=== PATIENT | male | born 1955 | race Caucasian/White ===

== ENCOUNTER 2016-11-23 07:27 | Inpatient (IN) ==
[2016-11-23] MEDS ORDERED: Ipratropium/Albuterol Neb 3 ML IH ONE (07:53)
[2016-11-23] MEDS ORDERED: Azithromycin 500 MG in D5% in Water 250 ML IVPB ONE (07:53)
--- NOTE | 2016-11-23 07:58 | Emergency Department Note ---
Disposition Clinical Impression: Community acquired pneumonia, Acute exacerbation of chronic obstructive airways disease Acute exacerbation of CHF (congestive heart failure) Qualifiers: Congestive heart failure type: unspecified congestive heart failure type Qualified Code(s): I50.9 - Heart failure, unspecified Disposition: Admitted As Inpatient Condition: Fair Referrals: Sara Carcamo CNP [Primary Care Provider] - Forms: ED Satisfaction Letter Time of Disposition: 08:17 SOB HPI - General Chief Complaint: ED Shortness of Breath/Dyspnea Stated Complaint: LYLE, CHF Time Seen by Provider: 11/23/16 07:46 Source: patient Limitations: no limitations Nursing Notes Reviewed: Yes Vital Signs Reviewed: Yes - History of Present Illness Patient is a 60-year-old male who presents to [facility] ED with the chief complaint of recurrent pneumonia. He was already seen at [facility] and was diagnosed with CHF and right upper lobe recurrent pneumonia. He was treated with Rocephin, Solu-Medrol, IV metoprolol. His workup there did show an elevated troponin as well. A call was made to our hospital for direct admission. He was accepted already by Dr. Cantu the patient declined ambulance transfer over since he had a large bill from the previous hospitalization. Family drove him over to our emergency department. Patient just states he feels weak. No chest pain or difficulty breathing at this time. Onset (ago): week(s) Context: recent illness Severity: severe Consistency/Duration: gradually worsening Improves with: nothing Worsens with: nothing Known history of: COPD Associated symptoms: Reports: cough, wheezing. Denies: chest pain Cough present: Yes Cough Description: Involuntary Cough Frequency: Intermittent - Related Data Home oxygen amount: none Home Medications Medication Instructions Recorded Confirmed Aspirin [Ecotrin] 325 mg PO DAILY 10/25/16 11/23/16 Furosemide [Lasix] 40 mg PO BID 10/25/16 11/23/16 Lisinopril [Zestril] 10 mg PO DAILY 10/25/16 11/23/16 Previous Rx's Medication Instructions Recorded PredniSONE 40 mg PO DAILY #30 tablet 10/25/16 Allergies Allergy/AdvReac Type Severity Reaction Status Date / Time codeine Allergy See Verified 11/23/16 07:33 Comments All systems ED: reviewed and negative except as stated. Past Medical History - Past Medical History Attestation: Yes The following information was validated with the patient. Source: patient Medical history: Reports: cancer, CHF, COPD, diabetes, hypertension, other Psychiatric history: Reports: no psych history - Social History Smoking Status: Current every day smoker Smokeless Tobacco Status: No Alcohol use: Reports: occasionally Drug use: Reports: none Physical Exam - General Limitations: no limitations General appearance: alert, in no apparent distress - Head Head exam: atraumatic, normocephalic, normal inspection - Eye Eye exam: Present: normal appearance, PERRL, EOMI - ENT ENT exam: normal exam, normal oropharynx, mucous membranes moist - Neck Neck exam: Present: normal inspection, full ROM, trachea midline - Chest Chest inspection: Present: normal inspection, symmetric chest wall rise - Respiratory Respiratory exam: Present: wheezes (Diffuse bilateral) - Cardiovascular Cardiovascular exam: Present: normal rhythm, tachycardia - Abdominal Exam Abdominal exam: Present: soft, Non-Tender. Absent: tenderness, distention, guarding, rebound, rigidity - Extremities Exam Extremities exam: Present: normal inspection, full ROM. Absent: tenderness, pedal edema - Neurological Exam Neurological exam: Present: alert, oriented X3 - Psychiatric Psychiatric exam: Present: normal affect, normal mood - Skin Skin exam: Present: warm, dry, intact, normal color Course Course Narrative: Patient seen and examined. Patient had elevated troponin of 0.05, BNP in the 800s, chest x-ray that showed congestive heart failure. We will add on a repeat troponin. I spoke with hospitalist Dr. Corbin who has accepted patient for admission. He would like us to order a influenza swab as well as respiratory panel. Would also like a dose of Lasix and an aspirin. Vital Signs Temperature 98.5 F 11/23/16 07:33 Pulse Rate 115 11/23/16 07:33 Respiratory Rate 18 11/23/16 07:33 Blood Pressure 131/85 11/23/16 07:33 O2 Sat by Pulse Oximetry 97 11/23/16 07:33 Temperature 98.5 F 11/23/16 07:33 Pulse Rate 115 11/23/16 07:33 Respiratory Rate 18 11/23/16 07:33 Blood Pressure 131/85 11/23/16 07:33 O2 Sat by Pulse Oximetry 97 11/23/16 07:33 Oxygen Delivery Oxygen Delivery Room Air Shortness of Breath/Dyspnea - Medical Records Medical records reviewed: Yes I reviewed the patient's medical records. - Lab Data Lab results reviewed: Yes I reviewed the patient's lab results. - Radiology Data Radiology results reviewed: Yes I reviewed the patient's radiology results. - EKG Data EKG attestation: Yes I reviewed and interpreted this EKG. EKG results narrative: EKG done at 742 shows sinus tachycardia with a rate of [address] elevation. There is ST depression in V5 and V6. Large P waves indicating right atrial and left atrial enlargement. findings unchanged from prior EKG done 10/25/2016
--- NOTE | 2016-11-23 08:08 | Emergency Department Note ---
Disposition Clinical Impression: Community acquired pneumonia, Acute exacerbation of CHF (congestive heart failure), Acute exacerbation of chronic obstructive airways disease Disposition: Admitted As Inpatient Condition: Fair General Adult HPI - General Chief complaint: ED Shortness of Breath/Dyspnea Stated complaint: LYLE, CHF Time Seen by Provider: 11/23/16 07:46 Source: patient Limitations: no limitations Nursing Notes Reviewed: Yes Vital Signs Reviewed: Yes - History of Present Illness Pain Scale: 0 - Related Data Home Medications Medication Instructions Recorded Confirmed Aspirin [Ecotrin] 650 mg PO DAILY 10/25/16 11/23/16 Furosemide [Lasix] 40 mg PO BID 10/25/16 11/23/16 Lisinopril [Zestril] 10 mg PO DAILY 10/25/16 11/23/16 Spironolactone [Aldactone] 25 mg PO DAILY 11/23/16 11/23/16 Allergies Allergy/AdvReac Type Severity Reaction Status Date / Time codeine Allergy See Verified 11/23/16 07:33 Comments Past Medical History - Past Medical History Medical history: Reports: cancer, CHF, COPD, diabetes, hypertension, other Psychiatric history: Reports: no psych history - Social History Smoking Status: Current every day smoker Smokeless Tobacco Status: No Alcohol use: Reports: occasionally Drug use: Reports: none Physical Exam - General Limitations: no limitations General appearance: alert, in no apparent distress Course Vital Signs Temperature 98.5 F 11/23/16 07:33 Pulse Rate 115 11/23/16 07:33 Respiratory Rate 18 11/23/16 07:33 Blood Pressure 131/85 11/23/16 07:33 O2 Sat by Pulse Oximetry 97 11/23/16 07:33 Temperature 98.5 F 11/23/16 07:33 Pulse Rate 115 11/23/16 07:33 Respiratory Rate 18 11/23/16 08:25 Blood Pressure 131/85 11/23/16 07:33 O2 Sat by Pulse Oximetry 97 11/23/16 08:25 Oxygen Delivery Oxygen Delivery Room Air Medical Decision Making - MDM Narrative Medical decision making narrative: I examined this patient and my medical decision-making was reviewed with the DIRECTOR PERIOPERATIVE/PA/Advanced Practice Nurse/Resident Physician. I agree with the documented findings, disposition and treatment plan as described except to the extent set forth below. Patient was seen at an outlying ER yesterday they wanted to transfer him for admission. And he did not want to do that due to the fact that he was concerned that he would have to pay for the ambulance. He drove himself to the emergency department. They left his IV in. He did get a a dose of IV antibiotics there. Consisting of Rocephin solely. He does have a pneumonia on his chest x-ray as well as CHF. He has not had any chest pain this time he does have some wheezing. We are paging hospitalists to see if they will go ahead and admit him. Were not repeated his troponin and start his azithromycin, and give him a breathing treatment here. Patient's agreement with this plan. The hospitalists is paged. 0863 hours: Patient's troponin is back in 0.04. No chest pain here. He did get his azithromycin started, breathing treatment here. Hospitalist is excepted him to service. Impression is acute exacerbation of CHF and pneumonia. Elevated troponin and rule out ACS. - Lab Data Lab Results 11/23/16 Range/Units 08:07 Troponin I 0.04 H* (0-0.03) ng/mL
[2016-11-23] MEDS ORDERED: Aspirin 81 MG TAB.CHEW PO STA (08:09)
[2016-11-23] MEDS ORDERED: Furosemide 40 MG/4 ML VIAL IVP ONE (08:12)
[2016-11-23 10:43] LABS: Adenovirus Not Detected (Not Detect); Bordetella Pertussis Not Detected (Not Detect); Chlamydophila pneumoniae Not Detected (Not Detect); Coronavirus 229E Not Detected (Not Detect); Coronavirus HKU1 Not Detected (Not Detect); Coronavirus NL63 Not Detected (Not Detect); Coronavirus OC43 Not Detected (Not Detect); Human Metapneumovirus Not Detected (Not Detect); Human Rhinovirus/Enterovirus Not Detected (Not Detect); Influenza A Subtype 2009 H1 Not Detected (Not Detect); Influenza A Untypeable Not Detected (Not Detect); Influenza B Not Detected (Not Detect); Mycoplasma pneumoniae Not Detected (Not Detect); Parainfluenza Virus 1 Not Detected (Not Detect); Parainfluenza Virus 2 Not Detected (Not Detect); Parainfluenza Virus 3 Not Detected (Not Detect); Parainfluenza Virus 4 Not Detected (Not Detect); Respiratory Syncytial Virus Not Detected (Not Detect)
--- NOTE | 2016-11-23 11:58 | Internal Med History&Physical ---
Date of Encounter: 11/23/16 Time of Encounter: 11:54 Assessment and Plan (1) Tobacco abuse disorder Current visit: Yes Status: Acute I advised smoking cessation and provided counseling. Will offer nicotine replacement therapy. (2) Coronary artery disease Current visit: Yes Status: Acute Continue with aspirin. Check lipid panel. Monitor on telemetry. Trend troponin. Obtain echocardiogram. Qualifiers: Coronary Disease-Associated Artery/Lesion type: [place] artery [place] vs. transplanted heart: tribal heart Associated angina: without angina Qualified Code(s): I25.10 - Atherosclerotic heart disease of tribal coronary artery without angina pectoris (3) Acute exacerbation of CHF (congestive heart failure) Current visit: Yes Status: Acute Monitor on telemetry. Obtain echocardiogram to assess for ejection fraction. Trend troponin. We will treat with IV Lasix. Continue lisinopril and spironolactone. Daily weights and strict input and output monitoring. Qualifiers: Congestive heart failure type: unspecified congestive heart failure type Qualified Code(s): I50.9 - Heart failure, unspecified (4) Acute exacerbation of chronic obstructive airways disease Current visit: Yes Status: Acute Patient does not have a establish diagnosis of COPD however he has a lifelong history of smoking and he is wheezing profusely. He does not report a history of asthma. I will start IV steroids, start treatment with albuterol and Atrovent. I recommend outpatient follow-up with pulmonary for PFTs once the pneumonia clears. Continue oxygen by nasal cannula to maintain oxygen saturation above 92%. (5) Community acquired pneumonia Current visit: Yes Status: Acute Ceftriaxone and azithromycin for treatment of community-acquired pneumonia. Check sputum culture. Check Legionella and streptococcal antigens. Follow-up blood cultures. (6) Right upper lobe pneumonia Current visit: No Status: Acute Qualifiers: Pneumonia type: due to unspecified organism Qualified Code(s): J18.1 - Lobar pneumonia, unspecified organism (7) DVT prophylaxis Current visit: Yes Status: Acute Encourage early ambulation. He does not require chemical prophylaxis due to fully ambulatory state. Internal Medicine - H&P: HPI Chief complaint: Recurrent pneumonia Admitted From: Emergency Dept Plans for Post Hospital Care: Home History of present illness: Mr. Jackson is a 60 year old male with past medical history significant for CAD status post [place], congestive heart failure and hypertension who presented to the hospital for recurrent pneumonia. He says that he has been finding of pneumonia over the last 6 weeks since the middle of September he has had 4 courses of antibiotics and his symptoms improve with antibiotics however they recur once he stopped the antibiotics. He describes his symptoms as shortness of breath and right-sided upper chest pain which is moderate and dull, associated with cough productive of white phlegm sometimes with blood streaks. He also reports associated wheezing. He initially presented to [facility] where he was given ceftriaxone and azithromycin and referred for transfer to our facility. He signed out AMA and had his family drive him to our emergency department. Currently he denies shortness of breath at rest chest pain, here he reports continued cough. Review of systems: Patient reports feeling depressed, reports easy skin skin bruising, no rashes or wounds. Apart from what is mentioned in the history of present illness a 10 point review of systems was negative. Family history pertinent for the patient and his mother suffered with breast cancer, negative for premature coronary artery disease. Past Med Surg Social Fam HX - Past Medical History Medical history: cancer, CHF, COPD, diabetes, hypertension, other Psychiatric history: no psych history - Social History Smoking Status: Current every day smoker Smokeless Tobacco Status: No Alcohol use: occasionally Drug use: none Internal Medicine - H&P: Meds Aspirin [Ecotrin] 650 mg PO DAILY 10/25/16 [History] Furosemide [Lasix] 40 mg PO BID 10/25/16 [History] Lisinopril [Zestril] 10 mg PO DAILY 10/25/16 [History] Spironolactone [Aldactone] 25 mg PO DAILY 11/23/16 [History] Allergies codeine Allergy (Verified 11/23/16 07:33) See Comments Nausea, vomiting All Systems PM: A 10-system review of systems was performed and is negative for pertinent findings except as documented above in the HPI. - Constitutional Vitals: Temp Pulse Resp BP Pulse Ox 97.9 F 107 16 112/77 94 L 11/23/16 10:31 11/23/16 10:31 11/23/16 10:31 11/23/16 10:31 11/23/16 10:31 General appearance: Present: A&O X 3 - Eye Eye exam: Present: PERRL, conjuntiva pink, sclera anicteric Pupils: Present: PERRL - Neck Neck exam general surgery: Present: supple, trachea midline. Absent: lymphadenopathy - Respiratory Respiratory exam: Present: CTAB, wheezes. Absent: accessory muscle use, rales, rhonchi Additional comments: Bilateral expiratory wheezes and prolonged expiratory phase which did not clear with cough. - Cardiovascular Cardiovascular exam: Present: RRR, +S1, +S2. Absent: diastolic murmur, gallop, rubs, systolic murmur - GI/Abdominal GI/Abdominal exam: Present: normal bowel sounds, soft, no peritoneal signs. Absent: distended, tenderness - Extremities Exam Extremities exam: Present: warm, radial pulses palpable and symetrical. Absent : calf tenderness, cyanotic, pedal edema - Neurological Exam Neurological exam: Present: CN II-XII intact, oriented X3, no focal deficits. Absent: pronater drift, facial droop, speech deficit - Skin Skin exam: Present: dry, intact Internal Med - H&P Results - Labs Labs: Laboratory data from [facility] medical record drawn yesterday 11/22/2016: 20 blood cell count 12.8 hemoglobin 16.5 sodium 1:30 potassium 3.9B 110 creatinine 0.8 glucose 94. Troponin 0.05 BNP 893. - EKG Data Rate: tachycardia (Sinus tach [address] and T wave changes.) - Impressions Chest x-ray from [facility] yesterday shows enlarged heart. Hilar opacities and increased right upper lobe opacity concerning for pulmonary edema or pneumonia.
[2016-11-23] MEDS ORDERED: Acetaminophen 325 MG TABLET PO PRN (12:11)
[2016-11-23] MEDS ORDERED: Mag Hydrox/Al Hydrox/Simeth 30 ML UDC PO PRN (12:11)
[2016-11-23] MEDS ORDERED: Azithromycin 250 MG TABLET PO SCH (12:15)
[2016-11-23] MEDS: Aspirin Enteric Coated 325 MG Tablet PO SCH (12:45)
[2016-11-23] MEDS: Ipratropium/Albuterol Neb 3 ML IH SCH ×2 (15:39→19:53)
[2016-11-23] MEDS: Furosemide 40 MG/4 ML VIAL IVP SCH (17:48)
[2016-11-23] MEDS: methylPREDNISolone 125 MG/2 ML VIAL IVP SCH (17:48)
[2016-11-23] MEDS: Nicotine 14 MG PATCH.TD24 TD SCH (17:48)
[2016-11-24] MEDS: Ipratropium/Albuterol Neb 3 ML IH SCH ×7 (00:02→23:05)
[2016-11-24] MEDS: methylPREDNISolone 125 MG/2 ML VIAL IVP SCH ×3 (00:28→20:11)
[2016-11-24 04:19] LABS: Basophils % 0.1 %; Hematocrit 48.6 % (37.5-50.1); Hemoglobin 16.4 g/dL (12.9-16.9); Immature Granulocytes % 0.6 % (0-4); Lymphocytes # 0.4 K/mcL (0.6-4.6); Lymphocytes % 3.2 %; Mean Corpuscular HGB Conc 33.7 g/dL (31.6-35.5); Mean Corpuscular Hemoglobin 31.6 pg (28.0-33.3); Mean Corpuscular Volume 93.6 fL (83.0-100.0); Mean Platelet Volume 10.4 fL (9.4-12.4); Monocytes # 0.3 K/mcL (0.0-1.3); Monocytes % 2.7 %; Neutrophils # 11.1 K/mcL (1.6-8.9); Platelet Count 267 K/mcL (140-400); Red Blood Count 5.19 M/mcL (4.19-5.50); Red Cell Distribution Width 14.1 % (11.5-14.5); Segmented Neutrophils % 93.4 %
[2016-11-24 04:37] LABS: BUN/Creatinine Ratio 24 (6-26); Blood Urea Nitrogen 20 mg/dL (8-26); Calcium 8.9 mg/dL (8.6-10.8); Carbon Dioxide 26 mEq/L (19-29); Chloride 97 mEq/L (98-109); Cholesterol 194 mg/dL (< 200); Glucose 139 mg/dL (70-99); HDL Cholesterol 49 mg/dL (40-59); LDL Cholesterol,Calculated 126 mg/dL (0-99); Magnesium 1.8 mg/dL (1.6-2.6); Osmolality,Calculated 283 (280-300); Potassium 3.5 mEq/L (3.5-4.5); Sodium 134 mEq/L (136-145); Triglycerides 95 mg/dL (< 150); eGFR For African Americans > 60 (> 60); eGFR For Non-African Americans > 60 (> 60)
[2016-11-24] MEDS: Nicotine 14 MG PATCH.TD24 TD SCH ×2 (09:08→22:32)
[2016-11-24] MEDS: Aspirin Enteric Coated 325 MG Tablet PO SCH (09:09)
[2016-11-24] MEDS: Spironolactone 25 MG TABLET PO SCH (09:09)
[2016-11-24] MEDS: Furosemide 40 MG/4 ML VIAL IVP SCH ×2 (09:09→17:13)
--- NOTE | 2016-11-24 10:01 | ECHO - Doppler Report ---
Echocardiogram Name: Reece Jackson Date of Study: 11/23/2016 Date: 1955 Ht: 74.0 in Medical Record#: [id number] Age: 60 Wt: 209.0 lb Gender: Male BSA: 2.21 Order #: [id number] Location: [facility] Room #: 3B39 Reading Physician: Reece Persaud MD, [facility] Logistics Management Specialist: Soraida Weller Ordering Physician: Yogi Corbin MD Primary Physician: Sara Carcamo CNP Indications: Congestive heart failure Impressions: Severely dilated left ventricle. Severe LV systolic dysfunction, LVEF 20%. There is global LV hypokinesis. Normal right ventricular size and function. A device lead was visualized in the right atrium and right ventricle. Mild mitral regurgitation. Unable to estimate RVSP due to lack of TR jet. Left Ventricular Wall Motion: Rest Echo Findings The apex, apical inferior, mid inferior, basal inferior, apical anterior, mid anterior, basal anterior, apical septal, mid inferior septal, basal inferior septal, apical lateral, mid anterior lateral, basal anterior lateral, mid anterior septal, mid inferior lateral, basal anterior septal and basal inferior lateral long were hypokinetic. Findings: Study Quality * Suboptimal echo windows. ECG Findings * Sinus tachycardia. Left Ventricle * Severely dilated left ventricle. * Severe LV systolic dysfunction, LVEF 20%. There is global LV hypokinesis. * Normal LV wall thickness. Right Ventricle * Normal right ventricular size and function. Device lead * A device lead was visualized in the right atrium and right ventricle. Left Atrium * Normal left atrial size. Right Atrium * Normal right atrial size. Aorta * Aortic root was not well visualized. Appears normal in size. Pericardium * There is no pericardial effusion present. IVC * Normal IVC dimensions and inspiratory collapse. Aortic Valve * Aortic valve not well visualized. * Normal aortic valve function. Mitral Valve * Mildly calcified mitral valve leaflets. * No mitral stenosis. * Mild mitral regurgitation. Tricuspid Valve * Tricuspid valve not well visualized. * Normal tricuspid valve function. * Unable to estimate RVSP due to lack of TR jet. Pulmonic Valve * Pulmonic valve not well visualized. * Normal pulmonic valve function. History Hypertension History of Smoking Years 50 Packs 0.5 Myocardial Infarction Congestive Heart Failure Pacer/ICD Implant 09/17/2013 a Previous Echo was performed. Measurements: BP: 121/ 83 2D Normal Values RVIDd: 3.10 cm IVSd: 1.00 cm 0.6 - 1.0 cm LVIDd: 7.20 cm 3.7 - 5.6 cm LVPWd: 1.00 cm 0.6 - 1.1 cm LVIDs: 6.50 cm 1.5 - 3.6 cm AO: 3.20 cm < 4.0 cm %FS: 9.72 cm >25 % LA volume: 63 Updated by Reece Persaud MD, [facility] on 11/24/2016 9:56:52 AM electronically signed on 11/24/2016 9:57:20 AM with status of Final Wall Motion [place]: 1=Normal, 2=Hypokinesis, 3=Akinesis, 4=Dyskinesis, 5=Aneurysmal, 6=Hyperkinetic, X=Not Visualized (Blank)=Missing
[2016-11-24] MEDS: Azithromycin 250 MG TABLET PO SCH (12:48)
--- NOTE | 2016-11-24 14:16 | Internal Med Progress Note ---
Date of Encounter: 11/24/16 Time of Encounter: 14:14 - Assessment and plan (1) Community acquired pneumonia Current Visit: Yes Status: Acute Assessment and plan: Chest x-ray shows right upper lobe infiltrates. Failed outpatient oral antibiotic therapy. Currently improving, continue IV Rocephin and azithromycin. Follow blood cultures. Urine Legionella and strep pneumonia antigen negative. Sample for sputum culture is inadequate. Improving leukocytosis. Continue supplemental oxygen as needed and supportive care. (2) Acute exacerbation of CHF (congestive heart failure) Current Visit: Yes Status: Acute Assessment and plan: Patient has known history of dilated cardiomyopathy. Echocardiogram shows severely dilated left ventricle, ejection fraction of 20%, mild mitral regurgitation. Continue IV Lasix, noted to have net negative balance of 2.4 L since admission. Continue fluid restriction, urine not monitoring and daily weights. Start metoprolol given his tachycardia, although patient reports that he always has some tachycardia at baseline. Supplemental oxygen as needed. Qualifiers: Congestive heart failure type: systolic Qualified Code(s): I50.23 - Acute on chronic systolic (congestive) heart failure (3) Acute exacerbation of chronic obstructive airways disease Current Visit: Yes Status: Acute Assessment and plan: Improving. Continue bronchodilators, taper down IV steroids as tolerated. Supplemental oxygen when necessary. Patient may need home oxygen evaluation at the time of discharge. Recommend outpatient PFTs given his chronic and significant smoking history. Physical and occupational therapy evaluation as he tends to live alone and severely symptomatic due to his cardiopulmonary issues. (4) Essential hypertension Current Visit: Yes Status: Chronic (5) Diabetes mellitus Current Visit: Yes Status: Chronic Assessment and plan: Continue Accu-Chek blood glucose monitoring with sliding scale insulin as needed. Diabetic diet. Qualifiers: Diabetes mellitus type: type 2 Diabetes mellitus complication status: with unspecified complications Diabetes mellitus retirement insulin use: without retirement use Qualified Code(s): E11.8 - Type 2 diabetes mellitus with unspecified complications (6) Coronary artery disease Current Visit: Yes Status: Acute Assessment and plan: Continue aspirin, beta jose alejandro and statin. Qualifiers: Coronary Disease-Associated Artery/Lesion type: [place] artery [place] vs. transplanted heart: [place] heart Associated angina: without angina Qualified Code(s): I25.10 - Atherosclerotic heart disease of [place] coronary artery without angina pectoris (7) Tobacco abuse disorder Current Visit: Yes Status: Chronic Assessment and plan: Patient reports having tried multiple times to quit smoking, unsuccessful. Continue nicotine transdermal patch at this time and patient also requests prescriptions for this at the time of discharge. - Subjective Interval history: Feels much better; improving cough and shortness of breath; no chest pain, palpitations, nausea, leg swelling; - Constitutional Vitals: Temp Pulse Resp BP Pulse Ox 98.1 F 110 17 109/68 91 L 11/24/16 10:52 11/24/16 10:52 11/24/16 10:52 11/24/16 10:52 11/24/16 10:52 General appearance: Present: A&O X 3 - Respiratory Respiratory exam: Present: rales (bibasal crackles+), wheezes (B/L diffuse end- expiratory wheezing). Absent: accessory muscle use, rhonchi - Cardiovascular Cardiovascular exam: Present: RRR, +S1, +S2, tachycardia. Absent: diastolic murmur, gallop, rubs, systolic murmur - GI/Abdominal GI/Abdominal exam: Present: normal bowel sounds, soft, no peritoneal signs. Absent: distended, tenderness - Extremities Exam Extremities exam: Present: full ROM, warm, radial pulses palpable and symetrical. Absent: calf tenderness, cyanotic, pedal edema - Neurological Exam Neurological exam: Present: CN II-XII intact, oriented X3, no focal deficits. Absent: pronater drift, facial droop, speech deficit Internal Medicine: Result - Labs CBC & Chem 7: 11/24/16 03:32 11/24/16 03:32 Labs: Short CBC 11/24/16 Range/Units 03:32 WBC 11.9 H (4.3-11.1) K/mcL Hgb 16.4 (12.9-16.9) g/dL Hct 48.6 (37.5-50.1) % Plt Count 267 (140-400) K/mcL Neutrophils # 11.1 H (1.6-8.9) K/mcL BMP 11/24/16 03:32 Sodium 134 L Potassium 3.5 Chloride 97 L Carbon Dioxide 26 BUN 20 D Creatinine 0.84 Glucose 139 H Calcium 8.9 Cardiac Enzymes 11/23/16 Range/Units 17:41 Troponin I 0.03 (0-0.03) ng/mL Consult Discharge Plan - Plan Referrals: Sara Carcamo, [employer] [Primary Care Provider] -
--- NOTE | 2016-11-24 16:03 | Electrocardiograph Report ---
[address] [address] Test Date: 2016-11-23 Pat Name: Reece Jackson Department: 104 Room: 3B39 Gender: M Dining Room Manager: : 1955 Requested By: Claudia Martinez Order Number: [id number] Reading MD: Parvez Alcala Measurements Intervals [place] Rate: 110 P: 64 NC: 227 QRS: -21 QRSD: 105 T: 72 QT: 409 QTc: 474 Interpretive Statements SINUS TACHYCARDIA WITH FIRST DEGREE AV BLOCK RIGHT ATRIAL ENLARGEMENT LEFT ATRIAL ENLARGEMENT BORDERLINE LEFT AXIS DEVIATION MODERATE T-WAVE ABNORMALITY, CONSIDER LATERAL ISCHEMIA Electronically Signed On 11-24-2016 16:01:31 EDT by Parvez Alcala
[2016-11-25] MEDS: Ipratropium/Albuterol Neb 3 ML IH SCH ×5 (03:52→20:46)
[2016-11-25] MEDS: methylPREDNISolone 125 MG/2 ML VIAL IVP SCH (08:55)
[2016-11-25] MEDS: Furosemide 40 MG/4 ML VIAL IVP SCH ×2 (08:56→15:30)
[2016-11-25] MEDS: Aspirin Enteric Coated 325 MG Tablet PO SCH (08:56)
[2016-11-25] MEDS: Nicotine 14 MG PATCH.TD24 TD SCH (08:56)
[2016-11-25] MEDS: Spironolactone 25 MG TABLET PO SCH (08:57)
[2016-11-25] MEDS: Azithromycin 250 MG TABLET PO SCH (12:17)
--- NOTE | 2016-11-25 14:47 | Internal Med Progress Note ---
Date of Encounter: 11/25/16 Time of Encounter: 14:47 - Assessment and plan (1) Community acquired pneumonia Current Visit: Yes Status: Acute Assessment and plan: Chest x-ray shows right upper lobe infiltrates. Failed outpatient oral antibiotic therapy. Currently improving, continue IV Rocephin and azithromycin. Follow blood cultures. Urine Legionella and strep pneumonia antigen negative. Sample for sputum culture is inadequate. Continue supplemental oxygen as needed and supportive care. (2) Acute exacerbation of CHF (congestive heart failure) Current Visit: Yes Status: Acute Assessment and plan: Patient has known history of dilated cardiomyopathy. Echocardiogram shows severely dilated left ventricle, ejection fraction of 20%, mild mitral regurgitation. Patient has ICD in place. Continue IV Lasix, noted to have net negative balance of 4.5 L since admission. Continue fluid restriction, urine output monitoring and daily weights. Continue beta jose alejandro and KORI inhibitor. Patient continues to be symptomatic, will consult cardiology. Supplemental oxygen as needed, may need home oxygen evaluation at discharge. Qualifiers: Congestive heart failure type: systolic Qualified Code(s): I50.23 - Acute on chronic systolic (congestive) heart failure (3) Acute exacerbation of chronic obstructive airways disease Current Visit: Yes Status: Acute Assessment and plan: Improving. Continue bronchodilators, taper down IV steroids as tolerated. Supplemental oxygen when necessary. Patient may need home oxygen evaluation at the time of discharge. Recommend outpatient PFTs given his chronic and significant smoking history. Physical and occupational therapy evaluation noted, deemed to have no therapy needs. Patient would still benefit from home health services given his severe cardiopulmonary symptoms. (4) Essential hypertension Current Visit: Yes Status: Chronic (5) Diabetes mellitus Current Visit: Yes Status: Chronic Assessment and plan: Continue Accu-Chek blood glucose monitoring with sliding scale insulin as needed. Diabetic diet. Qualifiers: Diabetes mellitus type: type 2 Diabetes mellitus complication status: with unspecified complications Diabetes mellitus local intermodal truck driver insulin use: without local intermodal truck driver use Qualified Code(s): E11.8 - Type 2 diabetes mellitus with unspecified complications (6) Coronary artery disease Current Visit: Yes Status: Acute Assessment and plan: Continue aspirin, beta jose alejandro and statin. Qualifiers: Coronary Disease-Associated Artery/Lesion type: [place] artery [place] vs. transplanted heart: [place] heart Associated angina: without angina Qualified Code(s): I25.10 - Atherosclerotic heart disease of [place] coronary artery without angina pectoris (7) Tobacco abuse disorder Current Visit: Yes Status: Chronic Assessment and plan: Patient reports having tried multiple times to quit smoking, unsuccessful. Continue nicotine transdermal patch at this time and patient also requests prescriptions for this at the time of discharge. - Subjective Interval history: Feels about the same; c/o- exertional dyspnea and orthopnea and fatigue; no chest pain or palpitations; - Constitutional Vitals: Temp Pulse Resp BP Pulse Ox 97.6 F 107 18 119/74 99 11/25/16 10:59 11/25/16 10:59 11/25/16 11:24 11/25/16 10:59 11/25/16 11:24 General appearance: Present: A&O X 3 - Respiratory Respiratory exam: Present: rales, wheezes (B/L end-expiratory wheezing). Absent : accessory muscle use, rhonchi - Cardiovascular Cardiovascular exam: Present: RRR, +S1, +S2. Absent: diastolic murmur, gallop, rubs, systolic murmur - GI/Abdominal GI/Abdominal exam: Present: normal bowel sounds, soft, no peritoneal signs. Absent: distended, tenderness - Extremities Exam Extremities exam: Present: full ROM, warm, radial pulses palpable and symetrical. Absent: calf tenderness, cyanotic, pedal edema Internal Medicine: Result - Labs CBC & Chem 7: 11/24/16 03:32 11/24/16 03:32 Consult Discharge Plan - Plan Referrals: Sara Carcamo CNP [Primary Care Provider] - 12/01/16 2:20 pm
[2016-11-26] MEDS: Ipratropium/Albuterol Neb 3 ML IH SCH ×5 (00:35→15:55)
[2016-11-26 06:05] LABS: BUN/Creatinine Ratio 36 (6-26); Blood Urea Nitrogen 31 mg/dL (8-26); Calcium 8.6 mg/dL (8.6-10.8); Carbon Dioxide 31 mEq/L (19-29); Chloride 98 mEq/L (98-109); Glucose 78 mg/dL (70-99); Osmolality,Calculated 291 (280-300); Potassium 3.9 mEq/L (3.5-4.5); Sodium 138 mEq/L (136-145); eGFR For African Americans > 60 (> 60); eGFR For Non-African Americans > 60 (> 60)
--- NOTE | 2016-11-26 08:16 | Cardiology Consult Note ---
Date of Encounter: 11/26/16 Time of Encounter: 08:15 Assessment and Plan (1) Acute exacerbation of chronic obstructive airways disease Current Visit: Yes Status: Acute Per Cardiology: History of nicotine abuse of at least 2 packs per day for the past 40 years. According to past medical records history of COPD. Not follow with pulmonology. Patient was scattered expiratory wheezes throughout requiring nasal cannula 5 L O2-- previously on home oxygen. Recommend pulmonology consult for further management recommendations. (2) Community acquired pneumonia Current Visit: Yes Status: Acute Per Cardiology: Management per primary service. On Ceftriaxone and azithromycin for treatment of community-acquired pneumonia. (3) Acute exacerbation of CHF (congestive heart failure) Current Visit: Yes Status: Acute Per Cardiology: BNP upon admission in the 800s. Previous weight from last office visit 218 pounds. Patient reports baseline weight 210 pounds. Current weight 204.6 pounds. On IV Lasix 40 mg twice a day. He reports home dose of Lasix 20 mg by mouth twice a day. According to records patient net -5323ml. Euvolemic on exam. Do not suspect ongoing SOB and wheezing mainly attributed to heart failure. Will switch to Lasix 40 mg by mouth twice a day. Has ICD and denies any ICD shocks, however has been lost to follow-up. We'll perform ICD interrogation. Current EF 20% on echo with mild MR. Previous echo from 2013 showed EF 10-15%. We'll convert Lopressor back to Coreg. On KORI inhibitor and Aldactone. Qualifiers: Congestive heart failure type: systolic Qualified Code(s): I50.23 - Acute on chronic systolic (congestive) heart failure (4) Coronary artery disease Current Visit: Yes Status: Chronic Per Cardiology: Past history of CAD with last catheterization October 2013 which showed left main 15% distal, mid LAD 40%, distal LAD 40%, diagonal 1:30 percent, midcircumflex 30%, OM1 20%, mid ramus 40%, mid RCA 30%-- nonobstructive CAD. Denies any chest pain. Troponin initially 0.04 and then negative 2. Do not suspect non-STEMI, suspect demand ischemia in the setting of pneumonia and COPD exacerbation. No cardiac rehabilitation warranted. We'll decrease aspirin to 81 mg by mouth daily and add statin. Qualifiers: Coronary Disease-Associated Artery/Lesion type: [place] artery [place] vs. transplanted heart: [place] heart Associated angina: without angina Qualified Code(s): I25.10 - Atherosclerotic heart disease of [place] coronary artery without angina pectoris (5) Tobacco abuse disorder Current Visit: Yes Status: Chronic Per Cardiology: History smoking at least 2 packs per day for the past 40 years. Patient reports he "quit smoking 5 days ago ". Currently on nicotine patch. Smoking cessation reinforced. Discussion w patient/family: The assessment and plan as outlined above was discussed with the patient who expressed understanding and agreement. All questions were answered. Thank you for involving us in the care of your patient. Please call with any questions. Patient discussed and reviewed with Dr. Parvez Alcala. History of Present Illness Consult date: 11/26/16 Requesting physician: Mary Martinez Consult reason: CHF Chief complaint: SOB History of present illness: Mr. Jackson is a 60 year old male with a relevant past medical history of cardiomyopathy, ICD, CAD, nicotine abuse, hypertension, COPD, diabetes mellitus type 2. Patient last seen by cardiology [place] [address] Beth. Patient reports he was admitted due to worsening short of breath at rest and with exertion. Reports he's been battling pneumonia off on on now for the past few months. He denied any fever, chills, nausea, vomiting, diarrhea. He denied any edema. He reports baseline weight about 210 pounds and denies any significant weight gain. He denies any recent ICD shocks, however reports has not been interrogated in quite some time and he does not believe his home interrogation is working properly. He denies any chest pain. 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 Past Med Surg Social Fam HX - Past Medical History Attestation: Yes The following information was validated with the patient. Source: patient, old records reviewed Medical history: cancer, cardiomyopathy, CHF, COPD, coronary artery disease, diabetes, hypertension, other Psychiatric history: no psych history - Past Surgical History Surgical History: pacemaker/AICD - Social History Smoking Status: Current every day smoker Smokeless Tobacco Status: No Alcohol use: occasionally Drug use: none Medications and Allergies Aspirin [Ecotrin] 650 mg PO DAILY 10/25/16 [History] Furosemide [Lasix] 40 mg PO BID 10/25/16 [History] Lisinopril [Zestril] 10 mg PO DAILY 10/25/16 [History] Spironolactone [Aldactone] 25 mg PO DAILY 11/23/16 [History] Allergies codeine Allergy (Verified 11/23/16 07:33) See Comments Nausea, vomiting All Systems Review: A 10-system review of systems was performed and is negative for pertinent findings except as documented above in the HPI. - Cardiovascular Cardiovascular: as per HPI, dyspnea at rest, dyspnea on exertion - Respiratory Respiratory: wheezing Physical Examination Vital Signs, Last 4 Hours Temp Pulse Resp BP Pulse Ox 11/26/16 07:23 97.6 F 107 17 113/77 97 General: Conversant HEENT: Atraumatic, Normocephaly Neck: No JVD, Normal carotid pulses Cardiac: Reg Rate and Rhythm, Normal S1 and S2, No Murmur Lungs: Other (Scattered expiratory wheezes throughout) Neuro: Alert and responsive Abdomen: Soft, Non-Tender Skin: No rashes noted on visualized skin Musculoskeletal: No Chest Wall Tenderness Extremities: No Edema, Normal Pulses Results 11/24/16 03:32 11/26/16 04:52 Lab Results Laboratory Tests 10/25/16 11/23/16 11/23/16 10:00 00:15 08:07 WBC Magnesium AST 21 ALT 18 Troponin I 0.04 H* B-Natriuretic Peptide 893 H Albumin 3.0 L 11/23/16 11/23/16 11/24/16 12:29 17:41 03:32 WBC 11.9 H Magnesium AST ALT Troponin I 0.03 0.03 B-Natriuretic Peptide Albumin 11/24/16 03:32 WBC Magnesium 1.8 AST ALT Troponin I B-Natriuretic Peptide Albumin Intake & Output 11/23/16 11/24/16 11/25/16 11/26/16 23:59 23:59 23:59 23:59 Intake Total 590 / 590 1790 / 1790 1277 / 1277 220 / 220 Output Total 1475 / 1475 3725 / 3725 4000 / 4000 Balance -885 / -885 -1935 / -1935 -3 / -2723 220 / 220 Weight 94.829 kg 92.986 kg 93.213 kg Active Medications Acetaminophen (Tylenol) 650 mg PO Q6HR PRN PRN Reason: Mild Pain (1-3) Stop: 09/12/17 12:12 Al Hydrox/Mg Hydrox/Simethicone (Maalox) 15 ml PO Q6HR PRN PRN Reason: Dyspepsia Stop: 05/25/17 12:12 Albuterol/Ipratropium (Duoneb) 3 ml IH [id number] ANTOINETTE PRN Reason: Protocol Stop: 05/25/17 16:01 Last Admin: 11/26/16 07:54 Dose: 3 ml Aspirin (Aspirin Ec) 650 mg PO DAILY ANTOINETTE Stop: 05/25/17 12:16 Last Admin: 11/25/16 08:56 Dose: 650 mg Azithromycin (Zithromax) 500 mg PO Q24H ANTOINETTE Stop: 05/26/17 12:46 Last Admin: 11/25/16 12:17 Dose: 500 mg Docusate Sodium (Colace) 100 mg PO BID PRN; Protocol PRN Reason: Constipation Stop: 05/26/17 22:17 Last Admin: 11/25/16 06:01 Dose: 100 mg Furosemide (Lasix) 40 mg IVP BIDDIURETIC ANTOINETTE Stop: 05/25/17 17:01 Last Admin: 11/25/16 15:30 Dose: 40 mg Ceftriaxone Sodium 1,000 mg/ (Dextrose) 100 mls @ 200 mls/hr IVPB Q12HR ANTOINETTE Stop: 05/25/17 18:01 Last Infusion: 11/26/16 06:28 Dose: Infused Lisinopril (Zestril) 10 mg PO DAILY ANTOINETTE PRN Reason: Protocol Stop: 05/26/17 09:01 Last Admin: 11/25/16 08:56 Dose: 10 mg Methylprednisolone (Solu-Medrol) 60 mg IVP DAILY [facility] Stop: 05/28/17 09:01 Metoprolol Tartrate (Lopressor) 25 mg PO BID ANTOINETTE Stop: 05/26/17 14:16 Last Admin: 11/25/16 20:49 Dose: 25 mg Nicotine (Nicoderm) 14 mg TD DAILY ANTOINETTE PRN Reason: Protocol Stop: 05/25/17 17:31 Last Admin: 11/25/16 08:56 Dose: 14 mg Spironolactone (Aldactone) 25 mg PO DAILY ANTOINETTE Stop: 05/26/17 09:01 Last Admin: 11/25/16 08:57 Dose: 25 mg - Imaging and Cardiology Chest Xray: report reviewed Echo: report reviewed Cardiac cath: report reviewed - EKG Interpretation EKG results cardiology: personally reviewed (Sinus tachycardia in the 100s with first-degree AV block), no diagnostic ischemia, other (24 hr tele reviewed with avg HR = 109, SR-ST, 1 5 beat run NSVT) Consult Discharge Plan - Plan Referrals: Sara Carcamo CNP [Primary Care Provider] - 12/01/16 2:20 pm
[2016-11-26] MEDS ORDERED: methylPREDNISolone 125 MG/2 ML VIAL IVP SCH (09:00)
[2016-11-26] MEDS: Nicotine 14 MG PATCH.TD24 TD SCH (09:26)
[2016-11-26] MEDS: Spironolactone 25 MG TABLET PO SCH (09:27)
[2016-11-26] MEDS: Aspirin Enteric Coated 325 MG Tablet PO SCH (09:27)
[2016-11-26 11:15] VITALS: BP 127/80
[2016-11-26] MEDS: Azithromycin 250 MG TABLET PO SCH (13:18)
--- NOTE | 2016-11-26 15:12 | Discharge Summary ---
Date of Encounter: 11/26/16 Time of Encounter: 15:09 - Discharge Diagnosis (1) Community acquired pneumonia Priority: Primary Status: Acute (2) Acute exacerbation of CHF (congestive heart failure) Priority: Primary Status: Acute Qualifiers: Congestive heart failure type: systolic Qualified Code(s): I50.23 - Acute on chronic systolic (congestive) heart failure (3) Acute exacerbation of chronic obstructive airways disease Priority: Primary Status: Acute (4) Essential hypertension Priority: Secondary Status: Chronic (5) Diabetes mellitus Priority: Secondary Status: Chronic Qualifiers: Diabetes mellitus type: type 2 Diabetes mellitus complication status: with unspecified complications 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 transplanted heart: [place] heart Associated angina: without angina Qualified Code(s): I25.10 - Atherosclerotic heart disease of [place] coronary artery without angina pectoris (7) Tobacco abuse disorder Priority: Secondary Status: Chronic - Discharge Medications Prescriptions: Aspirin Enteric Coated [Aspirin EC] 81 mg PO DAILY #30 tablet. Atorvastatin [Lipitor] 40 mg PO HS #30 tablet Carvedilol [Coreg] 25 mg PO BIDWM #30 tablet Levofloxacin [Levaquin] 500 mg PO DAILY #5 tablet Nicotine Patch [Nicoderm] 14 mg TD DAILY #20 patch.[id number] PredniSONE 40 mg PO DAILY 10 Days Home Medications: Furosemide [Lasix] 40 mg PO BID 10/25/16 [History] Lisinopril [Zestril] 10 mg PO DAILY 10/25/16 [History] Spironolactone [Aldactone] 25 mg PO DAILY 11/23/16 [History] Aspirin Enteric Coated [Aspirin EC] 81 mg PO DAILY #30 tablet. 11/26/16 [Rx] Atorvastatin [Lipitor] 40 mg PO HS #30 tablet 11/26/16 [Rx] Carvedilol [Coreg] 25 mg PO BIDWM #30 tablet 11/26/16 [Rx] Levofloxacin [Levaquin] 500 mg PO DAILY #5 tablet 11/26/16 [Rx] Nicotine Patch [Nicoderm] 14 mg TD DAILY #20 patch.[id number] 11/26/16 [Rx] PredniSONE 40 mg PO DAILY 10 Days 11/26/16 [Rx] Allergies/Adverse Reactions: Allergies codeine Allergy (Verified 11/23/16 07:33) See Comments Nausea, vomiting Date of admission: 11/23/16 14:51 Primary care physician: Sara Carcamo CNP Consults: 11/24/16 13:56 Consult to Occupational Therapy [CONS] Routine Comment: Evaluate, develop and implement POC Consult to Physical Therapy [CONS] Routine Comment: Evaluate, develop and implement POC 11/25/16 12:12 Consult to [facility] [employer] [CONS] Routine Reason for SW Consult: wanting the nurses to come out to his house but not home health aides 11/25/16 14:45 Consult to Cardiology [CONS] Routine Comment: Consulting Provider: Saeed Pa Reason for Consult: Acute systolic CHF Call Completed: No Discharging clinician: Mary Martinez Anticipated date of discharge: 11/26/16 - Patient Status Disposition: Left Against Medical Advice Condition: Fair Functional capacity at discharge: independent ambulation - Discharge Instructions Follow Up With: Sara Carcamo CNP [Primary Care Provider] - 12/01/16 2:20 pm Additional Instructions: F/up with [facility] in 2-3 weeks F/up with [facility] in 2-3 weeks - Diet and Activity Activity: increase activity as tolerated Diet: diabetic diet, low fat, low cholesterol, low salt diet (fluid restriction to 1.2L/day) Hospital course: Mr. Jackson is a 60 year old male with the above medical problems, admitted with worsening cough and dyspnea. Chest XRay showed e/o- Pneumonia and he was started on IV antibiotics. He was also noted to have signs and symptoms of CHF and has known h/o- CHF with medical noncompliance. Echocardiogram showed decreased EF 20%, LVD, global LV hypokinesis. He was started on IV Lasix along with beta-jose alejandro and ACEI. He also has a heavy smoking history with B/L wheezing and was started on bronchodilators along with IV steroids and supplemental O2. He improved symptomatically during his hospital stay, however continued to have tachycardia and hypoxia on room air. Cardiology was consulted and his Metoprolol was changed to Coreg. ICD interrogation was done which showed episodes of NSVT and VF. He was recommended to stay for further evaluation and medical optimization, however he claimed he is used to living alone in the street, in silence and hospital environment is causing a great deal of anxiety. He refused HHS. home O2 evaluation was done and he would benefit from 2L/min supplemental O2 via [place], and he is mobile at home. Home O2 is being set up. Despite explaining the risks of leaving, he signed AMA papers and left. He did receive prescriptions for antibiotics, steroids, cardiac meds. Time spent discussing smoking cessation with patient: 3 to 10 minutes - Time Spent with Patient Total time spent providing and/or coordinating discharge services: Greater than 30 minutes (55 min) - Constitutional Vitals: Temp Pulse Resp BP Pulse Ox 97.3 F L 120 18 127/80 97 11/26/16 11:14 11/26/16 11:14 11/26/16 11:54 11/26/16 11:14 11/26/16 11:54 General appearance: Present: A&O X 3 - Respiratory Respiratory exam: Present: wheezes (improving B/L expiratory wheezing). Absent : accessory muscle use, rales, rhonchi - Cardiovascular Cardiovascular exam: Present: RRR, +S1, +S2, tachycardia. Absent: diastolic murmur, gallop, rubs, systolic murmur
[2016-11-26] MEDS ORDERED: Furosemide 40 MG TABLET PO SCH (17:00)
[2016-11-27] MEDS ORDERED: Aspirin Enteric Coated 81 MG Tablet PO SCH (09:00)
== END 2016-11-26 17:15 | disposition left against medical advice (07) | DRG 190 ==
LOC: EMEROO 07:27 → 3BNU 07:27 → SUATTDRO 14:51
PROVIDERS: ADMIT Internal Medicine Endocrinology, Diabetes & Metabolism; ATTEND Internal Medicine

== ENCOUNTER 2017-06-27 20:33 | Inpatient (IN) ==
[2017-06-27] MEDS ORDERED: Ketorolac 30 MG/ML VIAL IVP ONE (21:21)
[2017-06-27 21:52] LABS: Basophils # 0.1 K/mcL (0.0-0.2); Basophils % 0.4 %; Eosinophils # 0.3 K/mcL (0.0-0.6); Eosinophils % 2.3 %; Hematocrit 41.1 % (37.5-50.1); Hemoglobin 13.9 g/dL (12.9-16.9); Immature Granulocytes % 0.6 % (0-4); Lymphocytes # 1.2 K/mcL (0.6-4.6); Lymphocytes % 9.3 %; Mean Corpuscular HGB Conc 33.8 g/dL (31.6-35.5); Mean Corpuscular Hemoglobin 28.7 pg (28.0-33.3); Mean Corpuscular Volume 84.7 fL (83.0-100.0); Mean Platelet Volume 8.6 fL (9.4-12.4); Monocytes # 1.2 K/mcL (0.0-1.3); Monocytes % 9.2 %; Neutrophils # 10.4 K/mcL (1.6-8.9); Platelet Count 408 K/mcL (140-400); Red Blood Count 4.85 M/mcL (4.19-5.50); Red Cell Distribution Width 14.7 % (11.5-14.5); Segmented Neutrophils % 78.2 %
[2017-06-27 21:57] LABS: INR 1.2; Prothrombin Time 13.1 Seconds (9.4-12.1)
--- NOTE | 2017-06-27 22:01 | Emergency Department Note ---
Disposition Clinical Impression: Cellulitis of both lower extremities, SIRS (systemic inflammatory response syndrome) Disposition: Admitted As Inpatient Condition: Fair Referrals: Sara Carcamo, CRISTHIAN [Primary Care Provider] - Forms: ED Satisfaction Letter Time of Disposition: 23:47 Extremity Problem HPI - General Chief complaint: ED Extremity Problem,Nontraumatic Stated complaint: Bilateral leg pain/redness Time Seen by Provider: 06/27/17 20:50 Source: patient Mode of arrival: private vehicle Limitations: no limitations Nursing Notes Reviewed: Yes Vital Signs Reviewed: Yes - History of Present Illness HPI Narrative: 61-year-old male with history of CHF presents to the ED for bilateral pedal edema, redness, swelling onset last night. Woke up this AM with exquisite tenderness limiting ability to walk due to pain as well as worsening edema (R>L) . Also cites red spots on feet, ankles, and shins first noticed this AM. He, lightheadedness, fevers, chills, sweats, chest pain, palpitations, shortness of breath, nausea, or vomiting. Patient denies any injury to either lower extremity including any skin abrasion or laceration. Patient is not diabetic. Takes low-dose aspirin; not on any other anticoagulants. Does not have any known coagulopathies. Most recent echo in record demonstrates LVEF 20%. No prior DVT, no known active malignancy, no recent immobilizing factors, swelling limited to distal leg/feet, insignificant lateralizing difference, pos pitting edema, collateral veins appreciated; Wells DVT = 2. Pain Scale: 5 - Related Data Home Medications Medication Instructions Recorded Confirmed Furosemide [Lasix] 40 mg PO DAILY 10/25/16 12/17/16 Lisinopril [Zestril] 20 mg PO DAILY 10/25/16 12/17/16 Spironolactone [Aldactone] 25 mg PO DAILY 11/23/16 12/17/16 Digoxin [Lanoxin] 0.125 mg PO DAILY 01/08/17 01/08/17 Previous Rx's Medication Instructions Recorded Aspirin Enteric Coated [Aspirin EC] 81 mg PO DAILY #30 tablet. 11/26/16 Nicotine Patch [Nicoderm] 14 mg TD DAILY #20 patch.td24 11/26/16 DiphenhydraMINE [Benadryl] 25 mg PO Q4HR #18 capsule 06/09/17 Famotidine [Pepcid] 20 mg PO BID #60 tablet 06/09/17 predniSONE [PredniSONE] 1 each PO DAILY 12 Days tablet 06/09/17 Allergies Allergy/AdvReac Type Severity Reaction Status Date / Time codeine Allergy See Verified 06/27/17 20:43 Comments All systems ED: reviewed and negative except as stated. Review of Systems: As Per HPI Past Medical History - Past Medical History Attestation: Yes The following information was validated with the patient. Medical history: Reports: cardiomyopathy, CHF, hypertension, myocardial infarction, other Surgical history: Reports: pacemaker/AICD Psychiatric history: Reports: no psych history - Social History Smoking Status: Current every day smoker Smokeless Tobacco Status: No Alcohol use: Reports: heavy Drug use: Reports: none Physical Exam - General Limitations: no limitations General appearance: alert, in no apparent distress - Head Head exam: normocephalic - Eye Eye exam: Present: PERRL, EOMI. Absent: scleral icterus, conjunctival injection , nystagmus, miosis, mydriasis - ENT ENT exam: mucous membranes moist - Chest Chest inspection: Present: normal inspection, symmetric chest wall rise - Respiratory Respiratory exam: Present: normal lung sounds bilaterally. Absent: respiratory distress, wheezes, accessory muscle use, prolonged expiratory phase - Cardiovascular Cardiovascular exam: Present: normal rhythm, tachycardia, normal heart sounds ( somewhat distant heart sounds). Absent: systolic murmur, diastolic murmur, +S3 , +S4 - Abdominal Exam Abdominal exam: Present: soft, Non-Tender - Extremities Exam Extremities exam: Present: tenderness, pedal edema, other (from about mid-coulter and distal, patient has red macular lesions that do not charly. Ankles and feet are uniformly erythematous, edematous, and equisitely tender. No fluctuant areas felt. Cobblestoning visualized on bedside U/S. R>L for these findings.). Absent: normal capillary refill (Refill approximately 4 seconds; dorsalis pedis pulses faint but present confirmed on Doppler) - Neurological Exam Neurological exam: Present: alert, oriented X3 - Psychiatric Psychiatric exam: Present: normal affect - Skin Skin exam: Present: warm, dry. Absent: cyanosis, diaphoresis, pallor, mottled Course Course Narrative: Patient condition unchanged. Still having pain, but otherwise feels as well as when he arrived. He is tachycardic and hypotensive on monitor. Spoke with hospitalist regarding overall clinical picture; accepts patient to for further IV antibiotic therapy for cellulitis satisfying sepsis criteria. Vital Signs Temperature 97.4 F L 06/27/17 20:38 Pulse Rate 113 06/27/17 20:38 Respiratory Rate 20 06/27/17 20:38 Blood Pressure 95/63 06/27/17 20:38 O2 Sat by Pulse Oximetry 93 06/27/17 20:38 Temperature 97.4 F L 06/27/17 20:38 Pulse Rate 102 06/27/17 22:30 Respiratory Rate 20 06/27/17 20:38 Blood Pressure 88/50 06/27/17 22:30 O2 Sat by Pulse Oximetry 92 06/27/17 22:30 Oxygen Delivery Oxygen Delivery Room Air Extremity Problem, Nontraumati - MDM Narrative Medical decision making narrative: Work up revealed leukocytosis w/L-shift, elevated ESR/CRP, hyponatremia (126), low osmol, and normal lactate; blood cultures pending. XR of bilateral feet does not demonstrate osseous abnormality. Patient tachycardic and hypotensive satisfying at least Sepsis criteria. IV fluids started as well as initial dose of vanco/zosyn. Patient needs to be admitted for continued IV antibiotic therapy due to course and severity of likely b/l LE cellulitis with sepsis criteria. Spoke with hospitalist, Dr. Traylor, at [id number]; admit to for septic cellulitis of b/l LE. - Lab Data Lab results reviewed: Yes I reviewed the patient's lab results. Lab results narrative: Laboratory Last Values WBC 13.2 K/mcL (4.3-11.1) H 06/27/17 21:42 RBC 4.85 M/mcL (4.19-5.50) 06/27/17 21:42 Hgb 13.9 g/dL (12.9-16.9) 06/27/17 21:42 Hct 41.1 % (37.5-50.1) 06/27/17 21:42 MCV 84.7 fL (83.0-100.0) 06/27/17 21:42 MCH 28.7 pg (28.0-33.3) 06/27/17 21:42 MCHC 33.8 g/dL (31.6-35.5) 06/27/17 21:42 RDW 14.7 % (11.5-14.5) H 06/27/17 21:42 Plt Count 408 K/mcL (140-400) H 06/27/17 21:42 MPV 8.6 fL (9.4-12.4) L 06/27/17 21:42 Immature Gran % 0.6 % (0-4) 06/27/17 21:42 Seg Neutrophils % 78.2 % 06/27/17 21:42 Lymphocytes % 9.3 % 06/27/17 21:42 Monocytes % 9.2 % 06/27/17 21:42 Eosinophils % 2.3 % 06/27/17 21:42 Basophils % 0.4 % 06/27/17 21:42 Neutrophils # 10.4 K/mcL (1.6-8.9) H 06/27/17 21:42 Lymphocytes # 1.2 K/mcL (0.6-4.6) 06/27/17 21:42 Monocytes # 1.2 K/mcL (0.0-1.3) 06/27/17 21:42 Eosinophils # 0.3 K/mcL (0.0-0.6) 06/27/17 21:42 Basophils # 0.1 K/mcL (0.0-0.2) 06/27/17 21:42 ESR >= 130 mm/hr (0-10) H 06/27/17 21:42 PT 13.1 Seconds (9.4-12.1) H 06/27/17 21:42 INR 1.2 06/27/17 21:42 APTT 31.0 Seconds (26.0-36.0) 06/27/17 21:42 Sodium 126 mEq/L (136-145) L 06/27/17 21:42 Potassium 4.7 mEq/L (3.5-4.5) H 06/27/17 21:42 Chloride 91 mEq/L (98-109) L 06/27/17 21:42 Carbon Dioxide 23 mEq/L (19-29) 06/27/17 21:42 BUN 17 mg/dL (8-26) 06/27/17 21:42 Creatinine 0.78 mg/dL (0.72-1.25) 06/27/17 21:42 Est GFR ( Amer) > 60 (> 60) 06/27/17 21:42 Est GFR (Non-Af Amer) > 60 (> 60) 06/27/17 21:42 BUN/Creatinine Ratio 22 (6-26) 06/27/17 21:42 Glucose 81 mg/dL (70-99) 06/27/17 21:42 Calculated Osmolality 263 (280-300) L 06/27/17 21:42 Lactic Acid 1.3 mmol/L (0.5-2.2) 06/27/17 21:42 Calcium 9.9 mg/dL (8.6-10.8) 06/27/17 21:42 Total Bilirubin 0.4 mg/dL (0.2-1.2) 06/27/17 21:42 Direct Bilirubin 0.2 mg/dL (0.0-0.5) 06/27/17 21:42 Indirect Bilirubin 0.2 mg/dL (0.0-1.2) 06/27/17 21:42 AST 15 Units/L (5-34) 06/27/17 21:42 ALT 9 Units/L (0-55) 06/27/17 21:42 Alkaline Phosphatase 122 Units/L (38-126) 06/27/17 21:42 Troponin I 0.02 ng/mL (0-0.03) 06/27/17 21:42 C-Reactive Protein 150 mg/L (Less than 5) H 06/27/17 21:42 Serum Total Protein 8.4 g/dL (6.0-8.3) H 06/27/17 21:42 Albumin 2.6 g/dL (3.5-5.0) L 06/27/17 21:42 Globulin 5.8 g/dL (2.4-3.5) H 06/27/17 21:42 Albumin/Globulin Ratio 0.4 (1.1-2.2) L 06/27/17 21:42 Lipase 10 Units/L (8-78) 06/27/17 21:42 Result diagrams: 06/27/17 21:42 06/27/17 21:42 Lab Results 06/27/17 06/27/17 06/27/17 Range/Units 21:42 21:42 21:42 WBC 13.2 H (4.3-11.1) K/mcL RBC 4.85 (4.19-5.50) M/mcL Hgb 13.9 (12.9-16.9) g/dL Hct 41.1 (37.5-50.1) % MCV 84.7 (83.0-100.0) fL MCH 28.7 (28.0-33.3) pg MCHC 33.8 (31.6-35.5) g/dL RDW 14.7 H (11.5-14.5) % Plt Count 408 H (140-400) K/mcL MPV 8.6 L (9.4-12.4) fL Immature Gran % 0.6 (0-4) % Seg Neutrophils % 78.2 % Lymphocytes % 9.3 % Monocytes % 9.2 % Eosinophils % 2.3 % Basophils % 0.4 % Neutrophils # 10.4 H (1.6-8.9) K/mcL Lymphocytes # 1.2 (0.6-4.6) K/mcL Monocytes # 1.2 (0.0-1.3) K/mcL Eosinophils # 0.3 (0.0-0.6) K/mcL Basophils # 0.1 (0.0-0.2) K/mcL ESR >= 130 H (0-10) mm/hr PT 13.1 H (9.4-12.1) Seconds INR 1.2 APTT 31.0 (26.0-36.0) Seconds Sodium (136-145) mEq/L Potassium (3.5-4.5) mEq/L Chloride (98-109) mEq/L Carbon Dioxide (19-29) mEq/L BUN (8-26) mg/dL Creatinine (0.72-1.25) mg/dL Est GFR ( Amer) (> 60) Est GFR (Non-Af Amer) (> 60) BUN/Creatinine Ratio (6-26) Glucose (70-99) mg/dL Calculated Osmolality (280-300) Lactic Acid (0.5-2.2) mmol/L Calcium (8.6-10.8) mg/dL Total Bilirubin (0.2-1.2) mg/dL Direct Bilirubin (0.0-0.5) mg/dL Indirect Bilirubin (0.0-1.2) mg/dL AST (5-34) Units/L ALT (0-55) Units/L Alkaline Phosphatase (38-126) Units/L Troponin I (0-0.03) ng/mL C-Reactive Protein (Less than 5) mg/L Serum Total Protein (6.0-8.3) g/dL Albumin (3.5-5.0) g/dL Globulin (2.4-3.5) g/dL Albumin/Globulin Ratio (1.1-2.2) Lipase (8-78) Units/L 06/27/17 06/27/17 06/27/17 Range/Units 21:42 21:42 21:42 WBC (4.3-11.1) K/mcL RBC (4.19-5.50) M/mcL Hgb (12.9-16.9) g/dL Hct (37.5-50.1) % MCV (83.0-100.0) fL MCH (28.0-33.3) pg MCHC (31.6-35.5) g/dL RDW (11.5-14.5) % Plt Count (140-400) K/mcL MPV (9.4-12.4) fL Immature Gran % (0-4) % Seg Neutrophils % % Lymphocytes % % Monocytes % % Eosinophils % % Basophils % % Neutrophils # (1.6-8.9) K/mcL Lymphocytes # (0.6-4.6) K/mcL Monocytes # (0.0-1.3) K/mcL Eosinophils # (0.0-0.6) K/mcL Basophils # (0.0-0.2) K/mcL ESR (0-10) mm/hr PT (9.4-12.1) Seconds INR APTT (26.0-36.0) Seconds Sodium 126 L (136-145) mEq/L Potassium 4.7 H (3.5-4.5) mEq/L Chloride 91 L (98-109) mEq/L Carbon Dioxide 23 (19-29) mEq/L BUN 17 (8-26) mg/dL Creatinine 0.78 (0.72-1.25) mg/dL Est GFR ( Amer) > 60 (> 60) Est GFR (Non-Af Amer) > 60 (> 60) BUN/Creatinine Ratio 22 (6-26) Glucose 81 (70-99) mg/dL Calculated Osmolality 263 L (280-300) Lactic Acid 1.3 (0.5-2.2) mmol/L Calcium 9.9 (8.6-10.8) mg/dL Total Bilirubin (0.2-1.2) mg/dL Direct Bilirubin (0.0-0.5) mg/dL Indirect Bilirubin (0.0-1.2) mg/dL AST (5-34) Units/L ALT (0-55) Units/L Alkaline Phosphatase (38-126) Units/L Troponin I (0-0.03) ng/mL C-Reactive Protein 150 H (Less than 5) mg/L Serum Total Protein (6.0-8.3) g/dL Albumin (3.5-5.0) g/dL Globulin (2.4-3.5) g/dL Albumin/Globulin Ratio (1.1-2.2) Lipase (8-78) Units/L 06/27/17 06/27/17 Range/Units 21:42 21:42 WBC (4.3-11.1) K/mcL RBC (4.19-5.50) M/mcL Hgb (12.9-16.9) g/dL Hct (37.5-50.1) % MCV (83.0-100.0) fL MCH (28.0-33.3) pg MCHC (31.6-35.5) g/dL RDW (11.5-14.5) % Plt Count (140-400) K/mcL MPV (9.4-12.4) fL Immature Gran % (0-4) % Seg Neutrophils % % Lymphocytes % % Monocytes % % Eosinophils % % Basophils % % Neutrophils # (1.6-8.9) K/mcL Lymphocytes # (0.6-4.6) K/mcL Monocytes # (0.0-1.3) K/mcL Eosinophils # (0.0-0.6) K/mcL Basophils # (0.0-0.2) K/mcL ESR (0-10) mm/hr PT (9.4-12.1) Seconds INR APTT (26.0-36.0) Seconds Sodium (136-145) mEq/L Potassium (3.5-4.5) mEq/L Chloride (98-109) mEq/L Carbon Dioxide (19-29) mEq/L BUN (8-26) mg/dL Creatinine (0.72-1.25) mg/dL Est GFR ( Amer) (> 60) Est GFR (Non-Af Amer) (> 60) BUN/Creatinine Ratio (6-26) Glucose (70-99) mg/dL Calculated Osmolality (280-300) Lactic Acid (0.5-2.2) mmol/L Calcium (8.6-10.8) mg/dL Total Bilirubin 0.4 (0.2-1.2) mg/dL Direct Bilirubin 0.2 (0.0-0.5) mg/dL Indirect Bilirubin 0.2 (0.0-1.2) mg/dL AST 15 (5-34) Units/L ALT 9 (0-55) Units/L Alkaline Phosphatase 122 (38-126) Units/L Troponin I 0.02 (0-0.03) ng/mL C-Reactive Protein (Less than 5) mg/L Serum Total Protein 8.4 H (6.0-8.3) g/dL Albumin 2.6 L (3.5-5.0) g/dL Globulin 5.8 H (2.4-3.5) g/dL Albumin/Globulin Ratio 0.4 L (1.1-2.2) Lipase 10 (8-78) Units/L - Radiology Data Radiology results reviewed: Yes I reviewed the patient's radiology results. Foot X-Ray 06/27/17 21:21 IMPRESSION: Soft-tissue swelling with no acute osseous abnormality D/ / Luca Merida MD / Luca Merida MD Interpreting Provider: Luca Merida MD - EKG Data EKG attestation: Yes I reviewed and interpreted this EKG. EKG results narrative: 2228, 06/27/2017, rate 103, [place] interval to 29, QRS duration 96, QTC 45, axis -9 , no ST elevations or depressions, no acute T-wave abnormalities. No significant changes from prior EKG done on 03/18/2017. Attestation Statement - Attestation Attestation: I, Zeus Cardoza MD, personally evaluated this patient and discussed their management with the resident physician. I reviewed the resident's note and agree with the documented findings, medical decision making, and plan of care. 61-year-old male presents to the emergency department with a complaint of pain and redness and swelling of both feet and lower extremities which started yesterday because sniffily worse today. Pain and swelling much worse in the right foot especially over the lateral malleolus. Denies any fall or injury. No prior history of similar problems. He states that today the pain is been so bad he has been unable to ambulate. No fever. No cough or chest pain or shortness of breath. No abdominal pain. No nausea or vomiting. Patient states that he just generally does not feel well. On examination patient is a well-developed well-nourished elderly male in no acute distress. He is alert and oriented 3. There is no cyanosis or diaphoresis. Breath sounds are clear and equal bilaterally. Heart regular rhythm with a mild tachycardia. Abdomen is soft and nontender with normal bowel sounds. There is a rash to both lower extremities from the proximal coulter down on to the feet. Right is much greater than left. There is moderate swelling over the right lateral malleolus with erythema and warmth to touch. Marked tenderness to palpation. He does have palpable dorsalis pedis pulses. Capillary refill in the right foot seems delayed. Labs reviewed. WBC 13.2. ESR greater than 1:30. CRP 150. Sodium 126. Lactic acid 1.3. X-rays of both feet shows soft tissue swelling with no acute osseous abnormalities. No acute changes on EKG. Blood cultures obtained and IV antibiotics initiated. The hospitalist, Dr. Traylor, was consulted and accepted the admission of the patient.
[2017-06-27 22:03] LABS: BUN/Creatinine Ratio 22 (6-26); Blood Urea Nitrogen 17 mg/dL (8-26); Calcium 9.9 mg/dL (8.6-10.8); Carbon Dioxide 23 mEq/L (19-29); Chloride 91 mEq/L (98-109); Glucose 81 mg/dL (70-99); Osmolality,Calculated 263 (280-300); Potassium 4.7 mEq/L (3.5-4.5); Sodium 126 mEq/L (136-145); eGFR For African Americans > 60 (> 60); eGFR For Non-African Americans > 60 (> 60)
[2017-06-27] MEDS ORDERED: Vancomycin 1,250 MG in D5% in Water 250 ML IVPB ONE (22:05)
[2017-06-27] MEDS ORDERED: 0.9 % Sodium Chloride 1,000 ML IVC ONE (22:05)
[2017-06-27] MEDS ORDERED: Piperacillin/Tazobactam 3.375 GM in D5% in Water (Mini-Bag+) 100 ML IVPB ONE (22:05)
[2017-06-27 22:28] LABS: Albumin 2.6 g/dL (3.5-5.0); Albumin/Globulin Ratio 0.4 (1.1-2.2); Bilirubin,Direct 0.2 mg/dL (0.0-0.5); Bilirubin,Indirect 0.2 mg/dL (0.0-1.2); Bilirubin,Total 0.4 mg/dL (0.2-1.2); Globulin 5.8 g/dL (2.4-3.5); Total Protein 8.4 g/dL (6.0-8.3)
[2017-06-28] MEDS ORDERED: Naloxone 0.4 MG/ML INJ IVP PRN (01:30)
[2017-06-28] MEDS ORDERED: Ondansetron 4 MG/2 ML VIAL IVP PRN (01:30)
[2017-06-28] MEDS ORDERED: Acetaminophen 325 MG TABLET PO PRN (01:30)
[2017-06-28] MEDS ORDERED: *HR* Morphine 2 MG/ML SYRINGE IVP PRN (01:30)
[2017-06-28 02:35] LABS: Basophils % 0.4 %; Eosinophils # 0.3 K/mcL (0.0-0.6); Eosinophils % 2.8 %; Hematocrit 38.3 % (37.5-50.1); Hemoglobin 12.9 g/dL (12.9-16.9); Immature Granulocytes % 0.8 % (0-4); Lymphocytes # 1.3 K/mcL (0.6-4.6); Lymphocytes % 11.5 %; Mean Corpuscular HGB Conc 33.7 g/dL (31.6-35.5); Mean Corpuscular Hemoglobin 28.5 pg (28.0-33.3); Mean Corpuscular Volume 84.5 fL (83.0-100.0); Mean Platelet Volume 8.8 fL (9.4-12.4); Monocytes # 1.1 K/mcL (0.0-1.3); Monocytes % 9.6 %; Neutrophils # 8.3 K/mcL (1.6-8.9); Platelet Count 458 K/mcL (140-400); Red Blood Count 4.53 M/mcL (4.19-5.50); Red Cell Distribution Width 14.7 % (11.5-14.5); Segmented Neutrophils % 74.9 %
[2017-06-28 02:50] LABS: BUN/Creatinine Ratio 21 (6-26); Blood Urea Nitrogen 19 mg/dL (8-26); Calcium 9.4 mg/dL (8.6-10.8); Carbon Dioxide 23 mEq/L (19-29); Chloride 93 mEq/L (98-109); Chol/HDL Ratio 4.9 (0-4.9); Cholesterol 158 mg/dL (< 200); Glucose 88 mg/dL (70-99); HDL Cholesterol 32 mg/dL (40-59); LDL Cholesterol,Calculated 103 mg/dL (0-99); Magnesium 1.6 mg/dL (1.6-2.6); Osmolality,Calculated 260 (280-300); Potassium 4.6 mEq/L (3.5-4.5); Sodium 124 mEq/L (136-145); Triglycerides 114 mg/dL (< 150); eGFR For African Americans > 60 (> 60); eGFR For Non-African Americans > 60 (> 60)
--- NOTE | 2017-06-28 04:19 | Internal Med History&Physical ---
Date of Encounter: 06/28/17 Time of Encounter: 02:40 Assessment and Plan (1) Cellulitis of both lower extremities Current visit: Yes Status: Acute Acute cellulitis of both lower legs - unclear etiology, possibly due to injury or trauma Continue empiric IV Zosyn, IV Vancomycin, IV Morphine PRN, Heparin for DVT prophylaxis X-ray both feet - soft tissue swelling, no osseous abnormality WBC - 13.2 ESR - 130 CRP - 150 Lactic acid - 1.3 Ultrasound Doppler - pending Podiatry consult Cardiac telemetry, labs in a.m., monitor closely (2) Cardiomyopathy Current visit: Yes Status: Chronic Cardiomyopathy, systolic CHF dysfunction LVEF 20% - not in exacerbation Continue home dose of Lisinopril, Metoprolol, Lasix Fluid restriction, strict I's and O's, daily weight Qualifiers: Cardiomyopathy type: unspecified Qualified Code(s): I42.9 - Cardiomyopathy , unspecified (3) Coronary artery disease Current visit: No Status: Chronic Coronary artery disease, stable Troponin - negative Continue Aspirin, Lipitor Qualifiers: Coronary Disease-Associated Artery/Lesion type: [place] artery [place] vs. transplanted heart: [place] heart Associated angina: without angina Qualified Code(s): I25.10 - Atherosclerotic heart disease of [place] coronary artery without angina pectoris (4) Essential hypertension Current visit: No Status: Chronic Hypertension, controlled, monitor Continue home dose of Metoprolol, Lisinopril (5) Tobacco abuse disorder Current visit: No Status: Chronic Counseled about cessation, nicotine patch (6) DVT prophylaxis Current visit: Yes Status: Acute Continue heparin subcutaneous Internal Medicine - H&P: HPI Chief complaint: Bilateral lower leg pain and redness Admitted From: Emergency Dept Plans for Post Hospital Care: Home History of present illness: Mr. Jackson is a 61 year old male with past medical history of hypertension, CHF , cardiomyopathy LVEF 20%, COPD and coronary artery disease. Patient presents to the ED with complaints of bilateral lower leg pain and swelling. Examined in the room. Patient is awake and alert. Not in any distress. Able to provide all history. No family members at bedside. Patient states he developed bilateral lower leg edema and redness and pain about 24 hours prior to arrival. He states he woke up this morning with worsening pain. He states the pain is worse with weightbearing. Pain and swelling have been constant. He has difficulty walking due to pain. Describes the pain as sharp and rates it 7 out of 10. He states symptoms initially started on the left side and then gradually started on the right side as well. Patient denies any injury or trauma. Patient states he had a allergic reaction to both his lower legs about 1 week ago where he had multiple red spots on his feet and shins. Symptoms gradually improved. He states when he had the allergic reaction it was up to the level where he usually wears socks. He states today symptoms are also in the similar distribution. He states he does not have diabetes. Patient denies chest pain or shortness of breath or palpitations. Denies fever or chills or abdominal pain or nausea or vomiting. No other associated symptoms. No other acute complaints. Initial workup in the ED is significant for slightly elevated white count and hyponatremia. X-rays of both feet demonstrate soft tissue swelling without acute osseous abnormality. ESR is significantly elevated and CRP is also elevated. Lactic acid is within normal limits. Patient is being admitted for cellulitis of both lower legs. He will need IV antibiotics. We will need to hold off on IV fluids due to CHF LVEF 20%. Podiatry consult pending. Patient has been explained about his condition and plan of care in detail. He understood and agreed. No unanswered questions. CODE STATUS full code. Past Med Surg Social Fam HX - Past Medical History Medical history: cancer, cardiomyopathy, CHF, myocardial infarction Psychiatric history: no psych history - Past Surgical History Surgical History: pacemaker/AICD - Social History Smoking Status: Current every day smoker Smokeless Tobacco Status: No Alcohol use: occasionally Drug use: none - Family History Mother Family Member Ethnicity: Non- Living Status: Hx Family Cardiac Disorders: No Hx Family Respiratory Disorders: Yes Hx Family Cancer: Yes (breast) Hx Family GI Disorders: Yes Hx Family Endocrine Disorder: Yes (DM and Thyroid) Hx Family Neuromuscular Disorders: Yes Hx Family Neurologic Disorders: Yes Hx Family HEENT Disorders: No Hx Family Autoimmune Disorders: Yes (Lupus) Internal Medicine - H&P: Meds Furosemide [Lasix] 40 mg PO DAILY 10/25/16 [History] Lisinopril [Zestril] 20 mg PO DAILY 10/25/16 [History] Aspirin Enteric Coated [Aspirin EC] 81 mg PO DAILY #30 tablet. 11/26/16 [Rx] Nicotine Patch [Nicoderm] 14 mg TD DAILY #20 patch.td24 11/26/16 [Rx] Metoprolol [Lopressor] 20 mg PO DAILY 06/28/17 [History] 3 Allergy/AdvReac Type Severity Reaction Status Date / Time codeine Allergy See Verified 06/27/17 20:43 Comments All Systems PM: A 10-system review of systems was performed and is negative for pertinent findings except as documented above in the HPI. - Constitutional Constitutional: no fatigue, no fever(s), no weakness - EENT Eyes: no blurry vision - Cardiovascular Cardiovascular ROS IM: edema, no chest pain, no claudication, no diaphoresis, no dyspnea, no dyspnea on exertion, no lightheadedness, no orthopnea, no palpitations, no syncope - Respiratory Respiratory: no cough, no dyspnea, no hemoptysis, no dyspnea on exertion, no wheezing - Genitourinary Genitourinary ROS male: no dysuria - Musculoskeletal Musculoskeletal ROS IM: no back pain Additional comments: Bilateral lower leg edema, redness and pain - Neurological Neurological ROS: no abnormal gait, no confusion, no convulsions, no dizziness, no numbness, no tingling, no vertigo - Constitutional Vitals: Temp Pulse Resp BP Pulse Ox 97.4 F L 93 17 107/73 93 06/28/17 03:17 06/28/17 03:17 06/28/17 03:17 06/28/17 03:17 06/28/17 03:17 General appearance: Present: cooperative, A&O X 3, pleasant, no acute distress, answers questions appropriately - Head Head exam: Present: atraumatic - Eye Eye exam: Present: EOMI - ENT ENT exam: Present: mucous membranes moist - Respiratory Respiratory exam: Present: CTAB. Absent: chest wall tenderness, rales, rhonchi , wheezes, tachypnea - Cardiovascular Cardiovascular exam: Present: RRR, +S1, +S2 - GI/Abdominal GI/Abdominal exam: Present: soft. Absent: distended, firm, guarding, tenderness - Extremities Exam Extremities exam: Present: pedal edema, radial pulses palpable and symmetrical. Absent: calf tenderness, cyanotic Additional comments: Bilateral lower leg edema. Erythema over both feet with generalized tenderness. No abrasions or wounds. - Neurological Exam Neurological exam: Present: alert, CN II-XII intact, oriented X3, no focal deficits. Absent: facial droop, speech deficit Internal Med - H&P Results - Labs CBC & Chem 7: 06/28/17 02:26 06/28/17 02:26 Labs: Short CBC 06/28/17 Range/Units 02:26 WBC 11.1 (4.3-11.1) K/mcL Hgb 12.9 (12.9-16.9) g/dL Hct 38.3 (37.5-50.1) % Plt Count 458 H (140-400) K/mcL Neutrophils # 8.3 (1.6-8.9) K/mcL BMP 06/28/17 02:26 Sodium 124 L Potassium 4.6 H Chloride 93 L Carbon Dioxide 23 BUN 19 Creatinine 0.90 Glucose 88 Calcium 9.4 Cardiac Enzymes 06/28/17 Range/Units 02:26 Troponin I 0.02 (0-0.03) ng/mL
[2017-06-28 04:41] LABS: Hemoglobin A1C 5.4 %
[2017-06-28] MEDS ORDERED: Famotidine 20 MG/2 ML VIAL IVP SCH (06:00)
[2017-06-28] MEDS ORDERED: Vancomycin 1,000 MG in D5% in Water 250 ML IVPB SCH (06:00)
[2017-06-28 06:23] LABS: Bilirubin,Urine Negative (Negative); Blood,Urine Negative (Negative); Clarity,Urine Clear (Clear); Color,Urine Yellow (Yellow); Glucose,Urine (UA) Normal (Normal); Ketones,Urine Negative (Negative); Leukocyte Esterase,Urine Negative (Negative); Nitrite,Urine Negative (Negative); Protein,Urine Negative (Neg-Trace); Specific Gravity,Urine 1.011 (1.010-1.025); Urobilinogen,Urine Normal (Normal)
[2017-06-28] MEDS ORDERED: Furosemide 40 MG TABLET PO SCH (09:00)
[2017-06-28] MEDS: *HR* Heparin 5,000 UNIT/ML VIAL SQ SCH ×2 (09:47→15:13)
[2017-06-28] MEDS: Lisinopril 20 MG TABLET PO SCH (09:47)
[2017-06-28] MEDS: Aspirin Enteric Coated 81 MG Tablet PO SCH (09:47)
[2017-06-28] MEDS: Nicotine 14 MG PATCH.TD24 TD SCH (09:47)
[2017-06-28] MEDS: Piperacillin/Tazobactam 3.375 GM in D5% in Water (Mini-Bag+) 100 ML IVPB SCH ×2 (09:48→15:13)
[2017-06-28] MEDS: Vancomycin 1,250 MG in D5% in Water 250 ML IVPB SCH (11:49)
[2017-06-28] MEDS ORDERED: *HR* HYDROcodone/Acet 5/325 mg TABLET PO PRN (13:00)
[2017-06-28] MEDS ORDERED: Famotidine 20 MG TABLET PO SCH (16:30)
--- NOTE | 2017-06-28 17:48 | Podiatry Consult Note ---
Date of Encounter: 06/29/17 Time of Encounter: 16:40 Assessment and Plan (1) Henoch-Schonlein purpura Current visit: Yes Status: Acute Assessment: Palpable purpura to BLE consistent with Henoch-Schonlein purpura (HSP) complicated by cellulitis. HSP rash is located primarily in gravity dependent areas. 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 WBC: 11.1, ESR: >130, CRP: 150 Foot xray: Soft-tissue swelling with no acute osseous abnormality Plan: Continue antibiotic therapy to treat the cellulitis. HSP recovers spontaneously, management includes supportive care with adequate hydration, rest, elevation of BLE and symptomatic relief of pain. Recommend topical steroid to rash of BLE once cellulitis has resolved. Recommend patient follow up as on outpatient with Podiatry two weeks after discharge from hospital. (2) Cellulitis of both lower extremities Current visit: Yes Status: Acute History of Present Illness HPI: Mr. Jackson is a 61 year old male admitted to [facility] for cellulitis of BLE. Patient has a medical history significant for hypertension, CHF, cardiomyopathy , COPD and coronary artery disease. Podiatry was consulted for cellulitis to bilateral lower extremities. Patient states approximately a week ago he had an allergic reaction with a rash and hives on his upper torso with facial swelling. Patient states he was evaluated in the ED and was given Benadryl and prednisone. Patient states once the rash went away on his upper body it appeared on his lower legs. Patient states he noticed both feet turning red two days ago with swelling and pain. Patient states he could not touch his feet due to the pain. Patient denies any itching to his lower legs. Patient had xrays upon arrival to the ED which showed soft tissue swelling. No known injury or trauma. Patient states he does ride his four merino in the street. Patient denies any history of diabetes. No c/o numbness or tingling to both feet. Patient states today he is feeling much better. Patient states the swelling and redness have gone down and his feet are no longer painful. Past Med Surg Social Fam HX - Past Medical History Medical history: cancer, cardiomyopathy, CHF, myocardial infarction Psychiatric history: no psych history - Past Surgical History Surgical History: pacemaker/AICD - Social History Smoking Status: Current every day smoker Smokeless Tobacco Status: No Alcohol use: occasionally Drug use: none - Family History Mother Family Member Ethnicity: Non- Living Status: Hx Family Cardiac Disorders: No Hx Family Respiratory Disorders: Yes Hx Family Cancer: Yes (breast) Hx Family GI Disorders: Yes Hx Family Endocrine Disorder: Yes (DM and Thyroid) Hx Family Neuromuscular Disorders: Yes Hx Family Neurologic Disorders: Yes Hx Family HEENT Disorders: No Hx Family Autoimmune Disorders: Yes (Lupus) Medications and Allergies Furosemide [Lasix] 40 mg PO DAILY 10/25/16 [History] Aspirin Enteric Coated [Aspirin EC] 81 mg PO DAILY #30 tablet. 11/26/16 [Rx] Nicotine Patch [Nicoderm] 14 mg TD DAILY #20 patch.td24 11/26/16 [Rx] Lisinopril [Zestril] 10 mg PO DAILY 06/28/17 [History] Metoprolol Succinate 200 mg PO DAILY 06/28/17 [History] 3 Allergy/AdvReac Type Severity Reaction Status Date / Time codeine Allergy See Verified 06/27/17 20:43 Comments All Systems Reviewed: A 10-system review of systems was performed and is negative for pertinent findings except as documented above in the HPI. Physical Exam - Constitutional Vitals: Temp Pulse Resp BP Pulse Ox 98 F 95 16 111/69 98 06/28/17 11:00 06/28/17 11:00 06/28/17 11:00 06/28/17 11:00 06/28/17 11:00 Exam: General appearance: alert awake oriented X 3. Calm and pleasant, no acute distress.. Vascular: Pedal pulses +2/4 DP/PT , Edema graded at 1+/4, Skin Temperature warm , No calf pain with manual compression. capillary refill time is immediate to digits. Neurologic: Sensation intact with light touch to both feet Integument: Palpable purpura to BLE with erythema and swelling to the both feet. Erythema to right foot ascending to right ankle. Dry skin to both heels, no cracks, no fissures, no open areas. Toe nails #1 through #5 bilaterally are thick, elongated and mycotic, dried blood observed to toe nail #3 right, no active bleeding. Skin to interdigital webspaces of both feet is pink, warm and dry, no peeling skin, no maceration. Results - Labs Result Diagrams: 06/29/17 05:51 06/29/17 05:51 Labs: Abnormal lab results RDW 14.7 % (11.5-14.5) H 06/28/17 02:26 Plt Count 458 K/mcL (140-400) H 06/28/17 02:26 MPV 8.8 fL (9.4-12.4) L 06/28/17 02:26 ESR >= 130 mm/hr (0-10) H 06/27/17 21:42 PT 13.1 Seconds (9.4-12.1) H 06/27/17 21:42 Sodium 124 mEq/L (136-145) L 06/28/17 02:26 Potassium 4.6 mEq/L (3.5-4.5) H 06/28/17 02:26 Chloride 93 mEq/L (98-109) L 06/28/17 02:26 Calculated Osmolality 260 (280-300) L 06/28/17 02:26 C-Reactive Protein 150 mg/L (Less than 5) H 06/27/17 21:42 B-Natriuretic Peptide 320 pg/mL (0-100) H 06/28/17 02:26 Serum Total Protein 8.4 g/dL (6.0-8.3) H 06/27/17 21:42 Albumin 2.6 g/dL (3.5-5.0) L 06/27/17 21:42 Globulin 5.8 g/dL (2.4-3.5) H 06/27/17 21:42 Albumin/Globulin Ratio 0.4 (1.1-2.2) L 06/27/17 21:42 LDL Cholesterol, Calc 103 mg/dL (0-99) H 06/28/17 02:26 HDL Cholesterol 32 mg/dL (40-59) L 06/28/17 02:26 H & H 06/28/17 Range/Units 02:26 Hgb 12.9 (12.9-16.9) g/dL Hct 38.3 (37.5-50.1) % All other labs normal. Consult Discharge Plan - Plan Referrals: Sara Carcamo, TEST CONSULTANT [Primary Care Provider] -
--- NOTE | 2017-06-28 18:10 | Electrocardiograph Report ---
[address] [place], [place] [address] Test Date: 2017-06-27 Pat Name: Reece Jackson Department: 103 Room: 2A16 Gender: M Data Assistant: MILIND : 1955 Requested By: Rick Gastelum Order Number: [id number] Reading MD: Titus Wang MD Measurements Intervals [place] Rate: 103 P: 57 WV: 229 QRS: -9 QRSD: 96 T: 121 QT: 345 QTc: 405 Interpretive Statements SINUS TACHYCARDIA WITH FIRST DEGREE AV BLOCK LATERAL ISCHEMIA Electronically Signed On 06-28-2017 18:09:11 EDT by Titus Wang MD
--- NOTE | 2017-06-28 22:50 | Internal Med Progress Note ---
Date of Encounter: 06/28/17 Time of Encounter: 09:00 - Assessment and plan (1) Cellulitis of both lower extremities Current Visit: Yes Status: Acute Assessment and plan: Continue broad spectrum abx. Podiatry following, recs appreciated. (2) Left ventricular ejection fraction of 21% to 30% Current Visit: Yes Status: Acute Assessment and plan: If he needs fluids at any point, it will need to be given with caution. (3) Cardiomyopathy Current Visit: Yes Status: Chronic Qualifiers: Cardiomyopathy type: unspecified Qualified Code(s): I42.9 - Cardiomyopathy , unspecified (4) Essential hypertension Current Visit: No Status: Chronic (5) Tobacco abuse disorder Current Visit: No Status: Chronic - Subjective Interval history: Patient states his legs feel much better. Admits that redness still present but he would like to go home. He denies fevers/chills, leg pain. - Constitutional Vitals: Temp Pulse Resp BP Pulse Ox 98.3 F 102 18 112/65 95 06/28/17 19:00 06/28/17 19:00 06/28/17 19:00 06/28/17 19:00 06/28/17 19:00 General appearance: Present: cooperative, A&O X 3, pleasant, no acute distress, answers questions appropriately Exam: - Head Head exam: Present: atraumatic - Eye Eye exam: Present: EOMI - ENT ENT exam: Present: mucous membranes moist - Respiratory Respiratory exam: Present: CTAB. Absent: chest wall tenderness, rales, rhonchi , wheezes, tachypnea - Cardiovascular Cardiovascular exam: Present: RRR, +S1, +S2 - GI/Abdominal GI/Abdominal exam: Present: soft. Absent: distended, firm, guarding, tenderness - Extremities Exam Extremities exam: Present: pedal edema, radial pulses palpable and symmetrical. Absent: calf tenderness, cyanotic Additional comments: No edema. Erythema over both feet without. No abrasions or wounds. - Neurological Exam Neurological exam: Present: alert, CN II-XII intact, oriented X3, no focal deficits. Absent: facial droop, speech deficit Internal Medicine: Result - Labs CBC & Chem 7: 06/28/17 02:26 06/28/17 02:26 Labs: Short CBC 06/28/17 Range/Units 02:26 WBC 11.1 (4.3-11.1) K/mcL Hgb 12.9 (12.9-16.9) g/dL Hct 38.3 (37.5-50.1) % Plt Count 458 H (140-400) K/mcL Neutrophils # 8.3 (1.6-8.9) K/mcL BMP 06/28/17 02:26 Sodium 124 L Potassium 4.6 H Chloride 93 L Carbon Dioxide 23 BUN 19 Creatinine 0.90 Glucose 88 Calcium 9.4 Cardiac Enzymes 06/28/17 06/28/17 06/28/17 Range/Units 02:26 09:30 15:38 Troponin I 0.02 0.01 0.01 (0-0.03) ng/mL Urine 06/28/17 Range/Units 06:05 Urine Color Yellow (Yellow) Urine Clarity Clear (Clear) Urine pH 6.0 (5.0-8.0) pH Units Ur Specific [place] 1.011 (1.010-1.025) Urine Protein Negative (Neg-Trace) mg/dL Urine Glucose (UA) Normal (Normal) mg/dL - ABG Interpretation ABG results: PT/INR, D-dimer PT 13.1 Seconds (9.4-12.1) H 06/27/17 21:42 Consult Discharge Plan - Plan Referrals: Sara Carcamo, TEST HOLE DRILLER [Primary Care Provider] -
[2017-06-29] MEDS: Piperacillin/Tazobactam 3.375 GM in D5% in Water (Mini-Bag+) 100 ML IVPB SCH ×2 (00:08→08:46)
[2017-06-29] MEDS: Vancomycin 1,250 MG in D5% in Water 250 ML IVPB SCH (00:08)
[2017-06-29] MEDS: *HR* Heparin 5,000 UNIT/ML VIAL SQ SCH ×2 (00:09→08:43)
[2017-06-29 06:02] LABS: Basophils % 0.5 %; Eosinophils # 0.2 K/mcL (0.0-0.6); Eosinophils % 2.7 %; Hematocrit 37.5 % (37.5-50.1); Hemoglobin 12.3 g/dL (12.9-16.9); Immature Granulocytes % 0.7 % (0-4); Immature Platelets 2.1 % (1.1-6.1); Lymphocytes # 0.9 K/mcL (0.6-4.6); Mean Corpuscular HGB Conc 32.8 g/dL (31.6-35.5); Mean Corpuscular Hemoglobin 28.4 pg (28.0-33.3); Mean Corpuscular Volume 86.6 fL (83.0-100.0); Mean Platelet Volume 8.7 fL (9.4-12.4); Monocytes # 1.1 K/mcL (0.0-1.3); Monocytes % 12.3 %; Neutrophils # 6.5 K/mcL (1.6-8.9); Platelet Count 417 K/mcL (140-400); Red Blood Count 4.33 M/mcL (4.19-5.50); Red Cell Distribution Width 14.9 % (11.5-14.5); Segmented Neutrophils % 73.8 %
[2017-06-29 06:14] LABS: BUN/Creatinine Ratio 20 (6-26); Blood Urea Nitrogen 16 mg/dL (8-26); Calcium 9.3 mg/dL (8.6-10.8); Carbon Dioxide 27 mEq/L (19-29); Chloride 97 mEq/L (98-109); Glucose 93 mg/dL (70-99); Osmolality,Calculated 271 (280-300); Potassium 4.2 mEq/L (3.5-4.5); Sodium 130 mEq/L (136-145); eGFR For African Americans > 60 (> 60); eGFR For Non-African Americans > 60 (> 60)
[2017-06-29] MEDS: Lisinopril 20 MG TABLET PO SCH (08:39)
[2017-06-29] MEDS: Aspirin Enteric Coated 81 MG Tablet PO SCH (08:42)
[2017-06-29] MEDS: Nicotine 14 MG PATCH.TD24 TD SCH (08:45)
[2017-06-29] MEDS ORDERED: Metoprolol XL (24 HR) Succ 25 MG TAB.ER.24H PO SCH (09:00)
--- NOTE | 2017-06-29 11:58 | Discharge Summary ---
Date of Encounter: 06/29/17 Time of Encounter: 11:30 - Discharge Diagnosis (1) Cellulitis of both lower extremities Priority: Primary Status: Acute (2) Henoch-Schonlein purpura Priority: Secondary Status: Acute (3) Cardiomyopathy Priority: Secondary Status: Chronic Qualifiers: Cardiomyopathy type: unspecified Qualified Code(s): I42.9 - Cardiomyopathy , unspecified (4) Essential hypertension Priority: Secondary Status: Chronic (5) Tobacco abuse disorder Priority: Secondary Status: Chronic (6) Congestive heart failure Priority: Secondary Status: Acute Qualifiers: Congestive heart failure type: systolic Congestive heart failure chronicity : chronic Qualified Code(s): I50.22 - Chronic systolic (congestive) heart failure - Discharge Medications Prescriptions: cephALEXin [Keflex] 500 mg PO Q6HR #48 capsule Metoprolol XL (24 HR) Succ [Toprol Xl] 25 mg PO DAILY #30 tab.er.24h Home Medications: Furosemide [Lasix] 40 mg PO DAILY 10/25/16 [History] Aspirin Enteric Coated [Aspirin EC] 81 mg PO DAILY #30 tablet.dr 11/26/16 [Rx] Nicotine Patch [Nicoderm] 14 mg TD DAILY #20 patch.td24 11/26/16 [Rx] Lisinopril [Zestril] 10 mg PO DAILY 06/28/17 [History] Metoprolol XL (24 HR) Succ [Toprol Xl] 25 mg PO DAILY #30 tab.er.24h 06/29/17 [ Rx] cephALEXin [Keflex] 500 mg PO Q6HR #48 capsule 06/29/17 [Rx] Allergies/Adverse Reactions: 3 Allergy/AdvReac Type Severity Reaction Status Date / Time codeine Allergy See Verified 06/27/17 20:43 Comments Date of admission: 06/28/17 01:30 Primary care physician: Sara Carcamo CNP Consults: 06/28/17 02:36 Consult to Nutrition [CONS] Routine Comment: Consulting Provider: NUTRITION Reason for Dietary Consult: MST Score 06/28/17 04:20 Consult to Podiatry [CONS] Routine Consulting Provider: [facility] Reason for Consult: B/l lower leg cellulitis Call Completed: No Discharging clinician: Xiomara Cates Anticipated date of discharge: 06/29/17 - Patient Status Disposition: Home, Self-Care Condition: Good Functional capacity at discharge: independent ambulation Overall status at discharge: patient is back to baseline - Discharge Instructions Instructions: Cellulitis (DC), Pneumonia (DC) Follow Up With: Parvez Benson DPM [Partnered Physician] - 07/13/17 11:00 am Sara Carcamo CNP [Primary Care Provider] - (Please call office and make a follow up appointment in 5-7 days) - Diet and Activity Activity: resume usual activities as tolerated Diet: advance to your usual diet, low fat, low cholesterol, low salt diet Hospital course: Mr. Jackson is a 61 year old male patient with history of cardiomyopathy, coronary artery disease, essential hypertension who presented to the ER with complaints of bilateral lower extremity pain associated with erythema and swelling. He was diagnosed with bilateral lower extremity cellulitis. He was started on treatment with IV antibiotics and podiatry was consulted. Prior to presentation, patient had apparently developed an allergic reaction with urticaria involving his torso along with facial swelling. He had been treated with Benadryl and prednisone after he was seen in ED. While those symptoms subsided, he developed rash involving his lower extremities and feet. Patient had a palpable purpuric rash on his lower extremities and was diagnosed with Henoch-Schonlein purpura by podiatry with superimposed cellulitis. He responded well to antibiotics and is no longer having any pain in his lower extremities. HSP self-limiting condition and just require supportive care at this time. His renal function has been normal. He will be discharged on oral cephalexin and will follow up with podiatry as outpatient in 2 weeks. Patient's blood pressure has been on the lower normal while in the hospital. It is unclear how much metoprolol his been taking recently but his most recent prescription as outpatient was 100 mg Toprol-XL. At this time and continuing this dose further to 25 mg by mouth daily. He will need to follow up further with his primary care provider and sail cutter to make sure he is tolerating this dose well. - Time Spent with Patient Total time spent providing and/or coordinating discharge services: Greater than 30 minutes (32 min) - Constitutional Vitals: Temp Pulse Resp BP Pulse Ox 97.6 F 121 22 103/63 94 06/29/17 10:38 06/29/17 10:38 06/29/17 10:38 06/29/17 10:38 06/29/17 10:38 General appearance: Present: cooperative, A&O X 3, pleasant, no acute distress, answers questions appropriately - Respiratory Respiratory exam: Present: CTAB. Absent: accessory muscle use, rales, rhonchi, wheezes - Cardiovascular Cardiovascular exam: Present: RRR, +S1, +S2. Absent: diastolic murmur, gallop, rubs, systolic murmur - GI/Abdominal GI/Abdominal exam: Present: normal bowel sounds, soft, no peritoneal signs. Absent: distended, tenderness - Extremities Exam Extremities exam: Present: pedal edema (bilateral), warm, radial pulses palpable and symmetrical. Absent: calf tenderness, cyanotic Additional comments: resolving cellulitis, palpable purpura. - Neurological Exam Neurological exam: Present: CN II-XII intact, oriented X3, no focal deficits. Absent: facial droop, speech deficit - Skin Skin exam: Present: dry, intact
[2017-06-29 11:59] VITALS: BP 103/68
[2017-06-29] MEDS ORDERED: Aminoglycoside Consult 1 EACH MC ONE (13:19)
[2017-06-29] MEDS ORDERED: cephALEXin 500 MG CAPSULE PO SCH (18:00)
== END 2017-06-29 13:20 | disposition home or self-care (01) | DRG 603 ==
LOC: 2ANU 20:33 → EMEROO 20:33 → SUATTDRO 06-28 01:30 → 2ANU 06-28 01:30
PROVIDERS: ADMIT Internal Medicine; ATTEND Internal Medicine